=== PATIENT | female | born 1965 | race Caucasian/White ===

== ENCOUNTER → 2016-07-03 | Outpatient (CLI) | payer BC ==
[2015-04-02 06:30] VITALS: BP 124/83
[~2016-07-03] MED LIST: ASPI81TA2 PO; BIOT300T PO; BUPR150T11 PO; CALC-98 PO; CALC667C6 PO; MULT-496 PO; NITR0.4T SL; OMEP20TA PO; PROAIR HFA8.5 GM IH; SUCR1TAB29 PO
== END | disposition home or self-care (01) ==
LOC: KCIC MAMMO 08:55
PROVIDERS: ATTEND Obstetrics & Gynecology
DX: Z12.31 Encounter for screening mammogram for malignant neoplasm of breast (principal)
CPT/HCPCS: G0202; 77067

== ENCOUNTER → 2016-08-13 | Outpatient (CLI) | payer BC ==
[2015-04-02 06:30] VITALS: BP 124/83
[~2016-08-13] MED LIST changes: +NALT1TAB PO; +REGADENOSON 0.4 MG/5 ML DISP.SYRIN. IV ONE
== END | disposition home or self-care (01) ==
LOC: NM 07:27
PROVIDERS: ATTEND Internal Medicine Cardiovascular Disease
DX: R06.02 Shortness of breath (principal); I10 Essential (primary) hypertension; R07.9 Chest pain, unspecified
CPT/HCPCS: 96374

== ENCOUNTER → 2016-09-09 | Outpatient (CLI) | payer BC ==
[2015-04-02 06:30] VITALS: BP 124/83
[~2016-09-09] MED LIST changes: -REGADENOSON 0.4 MG/5 ML DISP.SYRIN. IV ONE
--- NOTE | 2016-09-09 14:42 | RAD ---
Indication shortness of air for the last year. Coughing. Weakness. PA and lateral views of the chest were obtained. Comparison is made to an examination 03/26/2015. The heart and pulmonary vessels are unremarkable. There is no acute parenchymal infiltrate. Significant pleural fluid is not seen. There is no pneumothorax. There is mild scoliosis. There has not been a significant change when compared to the previous exam. IMPRESSION: No acute finding. No significant change
== END | disposition home or self-care (01) ==
LOC: RAD 13:59
PROVIDERS: ATTEND Internal Medicine Pulmonary Disease
DX: M41.9 Scoliosis, unspecified (principal)
CPT/HCPCS: 71020

== ENCOUNTER → 2016-09-22 | Outpatient (CLI) | payer BC ==
[2015-04-02 06:30] VITALS: BP 124/83
[~2016-09-22] MED LIST changes: +ASPI-630 PO; -ASPI81TA2 PO; -OMEP20TA PO; +OMEP20TA8 PO; -SUCR1TAB29 PO; +SUCR1TAB35 PO
--- NOTE | 2016-09-28 22:00 | RESP ---
DATE OF SERVICE: The patient underwent full pulmonary function testing dated 09/22/2016. The FEV1 to FVC ratio was 77%, FEV1 was 2.48 liters, 99% of predicted, FVC was 3.22 liters or 102% of predicted. Total lung capacity was elevated. Residual volume was elevated. Diffusion capacity was preserved. IMPRESSION: No significant evidence of restrictive or obstructive lung disorder. EMMA GONZALES MD DR: SHANNON/rick JOB#: [id number] / [id number] ecc Dr.
== END | disposition home or self-care (01) ==
LOC: PF 07:40
PROVIDERS: ATTEND Internal Medicine Pulmonary Disease
DX: R06.02 Shortness of breath (principal)
CPT/HCPCS: 94010; 94729

== ENCOUNTER 2016-12-19 10:06 | Inpatient (IN) | payer BC ==
[~2016-12-19] VITALS: Ht 154.9 cm; Wt 96.6 kg
[2016-12-19] MEDS ORDERED: fentaNYL PF VIAL 100 MCG/2 ML VIAL IV ONE (10:15)
[2016-12-19] MEDS ORDERED: ONDANSETRON PF 4 MG/2 ML VIAL. IV ONE (10:15)
--- NOTE | 2016-12-19 10:23 | PHYS DOC ---
Past Medical History Past Medical History: Depression, Other Additional Past Medical Histor: REOCCURRING RIGHT BREAST INFECTION, PLANTAR FASCHITIS Past Surgical History: Cholecystectomy, Tonsillectomy, Other Additional Past Surgical Histo: RT BREAST BX Alcohol Use: Occasionally Drug Use: None Adult General Chief Complaint Chief Complaint: TRAUMA ACTIVATION HPI HPI Patient is a 51 year old female who presents by private vehicle with head injury, loss of consciousness, back pain and chest pain after fall from a horse. Injury occurred just prior to ED arrival. Trauma team activated at triage. Patient does not recall episode. Reports diffuse posterior neck pain, sharp back pain, right anterior chest wall pain. No shortness of breath, chest wall crepitus or abdominal pain or tenderness. No extremity weakness or loss of sensation. GCS 14. Patient is not on anticoagulation therapy. Additional history of COPD. Patient is a former smoker. Review of Systems Review of Systems Review of symptoms as per history of present illness. All other review symptoms are negative. Current Medications Current Medications Current Medications Medications (Trade) Dose Ordered Sig/Mayra Start Time Stop Time Status Last Admin Dose Admin Fentanyl Citrate (Fentanyl 2ml Vial) 75 mcg 1X ONCE 12/19/16 10:15 12/19/16 10:29 DC Iohexol (Omnipaque 300 Mg/ml) 75 ml STK-MED ONCE 12/19/16 10:46 12/19/16 10:47 DC Morphine Sulfate 4 mg Q2HR PRN 12/19/16 11:30 12/19/16 11:41 4 MG Ondansetron HCl (Zofran) 4 mg 1X ONCE 12/19/16 10:15 12/19/16 10:29 DC Allergies Allergies Allergies Coded Allergies Type Severity Reaction Last Updated Verified vancomycin Adverse Reaction Intermediate CAUSES CONFUSION PER PATIENT Yes Physical Exam Physical Exam Constitutional: Well developed, well nourished, large distress secondary pain. [ ] HENT: Normocephalic, atraumatic, bilateral external ears normal, oropharynx moist,nose normal. [] Eyes: PERRLA, EOMI. [] Neck: Normal range of motion, cervical collar in place. [] Cardiovascular:Heart rate regular rhythm, no murmur [] Lungs & Thorax: Bilateral breath sounds clear to auscultation 1 no flail chest , chest wall crepitus, palpable emphysema, right lower mid axillary chest wall tenderness. [] Abdomen: Bowel sounds normal, soft, no pelvic pain or bony tenderness. [] Skin: Warm, dry. [] Back: Lower thoracic pain/tenderness to palpation. No midline step-off bruising or swelling.. [] Extremities: No forearm disease or swelling. [] Neurologic: ACS 14 Alert and oriented X 2, cranial nerves II through XII grossly intact normal motor function, normal sensory function, no focal deficits noted. []] Current Patient Data Vital Signs Vital Signs Date Time Temp Pulse Resp B/P (MAP) Pulse Ox O2 Delivery O2 Flow Rate FiO2 12/19/16 11:41 19 98 Room Air Lab Values Laboratory Tests Test 12/19/16 10:15 12/19/16 12:16 White Blood Count 8.9 x10^3/uL (4.0-11.0) Red Blood Count 4.89 x10^6/uL (3.50-5.40) Hemoglobin 14.3 g/dL (12.0-15.5) Hematocrit 42.2 % (36.0-47.0) Mean Corpuscular Volume 86 fL (79-100) Mean Corpuscular Hemoglobin 29 pg (25-35) Mean Corpuscular Hemoglobin Concent 34 g/dL (31-37) Red Cell Distribution Width 14.7 % (11.5-14.5) H Platelet Count 279 x10^3/uL (140-400) Neutrophils (%) (Auto) 73 % (31-73) Lymphocytes (%) (Auto) 21 % (24-48) L Monocytes (%) (Auto) 4 % (0-9) Eosinophils (%) (Auto) 2 % (0-3) Basophils (%) (Auto) 0 % (0-3) Neutrophils # (Auto) 6.5 x10^3uL (1.8-7.7) Lymphocytes # (Auto) 1.8 x10^3/uL (1.0-4.8) Monocytes # (Auto) 0.4 x10^3/uL (0.0-1.1) Eosinophils # (Auto) 0.1 x10^3/uL (0.0-0.7) Basophils # (Auto) 0.0 x10^3/uL (0.0-0.2) Sodium Level 137 mmol/L (136-145) Potassium Level 4.0 mmol/L (3.5-5.1) Chloride Level 103 mmol/L (98-107) Carbon Dioxide Level 24 mmol/L (21-32) Anion Gap 10 (6-14) Blood Urea Nitrogen 14 mg/dL (7-20) Creatinine 1.2 mg/dL (0.6-1.0) H Estimated GFR (Cockcroft-Gault) 47.4 Glucose Level 201 mg/dL (70-99) H Calcium Level 9.5 mg/dL (8.5-10.1) Urine Collection Type Unknown Urine Color Yellow Urine Clarity Clear Urine pH 6.5 Urine Specific [place] >=1.030 Urine Protein 30 mg/dL (NEG-TRACE) Urine Glucose (UA) Negative mg/dL (NEG) Urine Ketones (Stick) Negative mg/dL (NEG) Urine Blood Negative (NEG) Urine Nitrite Negative (NEG) Urine Bilirubin Negative (NEG) Urine Urobilinogen Dipstick 0.2 mg/dL (0.2 mg/dL) Urine Leukocyte Esterase Negative (NEG) Urine RBC 0 /HPF (0-2) Urine WBC Occ /HPF (0-4) Urine Squamous Epithelial Cells Mod /LPF Urine Bacteria 0 /HPF (0-FEW) Urine Hyaline Casts Occasional /HPF Laboratory Tests 12/19/16 10:15 Laboratory Tests 12/19/16 10:15 EKG EKG [] Radiology/Procedures Radiology/Procedures [CT head/cervical spine/thoracic spine/chest/abdomen/pelvis: Mildly displaced right lateral seventh rib fracture, mildly displaced spinous process fractures of T7. 8. Mild endplate sclerosis asymmetry to the right T8-T9 and T9-T10 may be reactive to trauma. No definite thoracic vertebral body fractures. No intracranial, cervical spine, intrathoracic or intra-abdominal/pelvic injury per radiology report Chest XR: No acute cardiopulmonary disease.] Course & Med Decision Making Course & Med Decision Making Pertinent Labs and Imaging studies reviewed. (See chart for details) [Trauma team activated. Dr. Gates in the emergency department on patient arrival. Patient with trauma being bucked from a horse with closed head injury and back pain with evidence of musculoskeletal injury. Patient with concussion with prolonged anterograde amnesia, otherwise neurologically intact. Spinous process and rib fracture require repeat doses of narcotic pain medications in the emergency department. Will admit to the hospitalist for further pain control and observation of head injury.] Dragon Disclaimer Dragon Disclaimer This electronic medical record was generated, in whole or in part, using a voice recognition dictation system. Departure Departure Disposition: 09 ADMITTED INPATIENT Admitting Physician: Negin Trevino Referrals: SHEILA SU MD (PCP) RAZ PICKENS DO Dec 19, 2016 10:23
[2016-12-19 10:26] LABS: BASO % 0 % (0-3); EOS % 2 % (0-3); HEMATOCRIT 42.2 % (36.0-47.0); HEMOGLOBIN 14.3 g/dL (12.0-15.5); LYMPH # 1.8 x10^3/uL (1.0-4.8); LYMPH % 21 % (24-48); MEAN CORPUSCULAR HEMOGLOBIN 29 pg (25-35); MEAN CORPUSCULAR HGB CONC 34 g/dL (31-37); MEAN CORPUSCULAR VOLUME 86 fL (79-100); MONO % 4 % (0-9); NEUT % 73 % (31-73); PLATELET COUNT 279 x10^3/uL (140-400); RED BLOOD COUNT 4.89 x10^6/uL (3.50-5.40); RED CELL DISTRIBUTION WIDTH 14.7 % (11.5-14.5); WHITE BLOOD COUNT 8.9 x10^3/uL (4.0-11.0)
[2016-12-19] MEDS ORDERED: IOHEXOL 300 MG/ML 75 ML VIAL IV ONE (10:30)
[2016-12-19 10:40] LABS: CALCIUM 9.5 mg/dL (8.5-10.1); CREATININE 1.2 mg/dL (0.6-1.0); GFR 47.4
[2016-12-19] MEDS ORDERED: MORPHINE SULFATE 4 MG/ML DISP.SYRIN. IV ONE (10:45)
[2016-12-19] MEDS ORDERED: IOHEXOL 300 MG/ML 75 ML VIAL ONE (10:46)
--- NOTE | 2016-12-19 10:51 | RAD ---
Chest radiograph 12/19/2016 12:13 PM Indication: Fall, chest pain Comparison: Chest radiograph 09/09/2016 Technique: Single portable upright frontal view of the chest is provided. Findings: Cardiomediastinal silhouette is within normal limits. No pleural effusions, pulmonary vascular congestion or pneumothorax. The lungs are clear. Osseous structures are normal. Impression: No acute cardiopulmonary process.
--- NOTE | 2016-12-19 11:26 | RAD ---
CT head without contrast 12/19/2016 at 1056 hours Indication: Trauma, lower back pain Comparison: None available Technique: Multiple axial noncontrast CT images of the head were obtained from the skull base through the vertex. Multiple axial CT images of the cervical spine were obtained without intravenous contrast. Coronal and sagittal reformats are provided. Findings: Head: The ventricles, sulci and basal cisterns are within normal limits. Segura-white matter differentiation is normal. There is no acute intracranial hemorrhage. There is no mass, mass effect or midline shift. Posterior fossa is within normal limits. Sellar and suprasellar cistern appear normal. Orbits are normal in appearance. Paranasal sinuses are well aerated. Mastoid air cells are well aerated. Scalp and calvaria are normal. Cervical spine: Alignment of the cervical spine is normal. Craniocervical junction is normal. Atlantoaxial articulation is normal. There is no acute fracture. Mild anterior marginal osteophytosis noted at C4-C5 and C5-C6. There is no significant osseous spinal canal stenosis or neuroforaminal stenosis. Mild multilevel facet arthropathy and uncovertebral joint arthropathy. There is a 5 mm cyst in the right thyroid lobe. Which is portions of the upper lungs are normal. Impression: There is no acute intracranial hemorrhage. There is no acute fracture or malalignment of the cervical spine. PQRS Compliance Statement: One or more of the following individualized dose reduction techniques were utilized for this examination: 1. Automated exposure control 2. Adjustment of the mA and/or kV according to patient size 3. Use of iterative reconstruction technique
[2016-12-19] MEDS: MORPHINE SULFATE 4 MG/ML DISP.SYRIN. IV PRN ×4 (11:41→20:19)
--- NOTE | 2016-12-19 11:43 | RAD ---
CT chest, abdomen and pelvis with contrast 12/19/[address] thoracic spine reconstructions Indication: Trauma, lower back pain Comparison: None available Technique: Multiple axial CT images of the chest, abdomen and pelvis were obtained after the administration of 60 mL Omnipaque 300 intravenously. Coronal and sagittal reformats are provided. Thoracic spine reconstructions are provided for detailed evaluation of the thoracic spine. Findings: Chest: A 5 mm cyst is identified in the right thyroid lobe. There are no pathologically enlarged lymph nodes in the axilla, mediastinum or hilar regions. Heart size is within normal limits. Thoracic aorta is normal in course and caliber. There is no pericardial effusion. There is a 5 mm calcified granuloma in the right middle lobe. No suspicious pulmonary nodules are identified. There is bibasilar subsegmental atelectasis. No suspicious pulmonary infiltrates present. No pulmonary vascular congestion or pneumothorax. There are no pleural effusions. Abdomen/pelvis: Hypoattenuation of the hepatic parenchyma suggestive of diffuse hepatic steatosis. A small hiatal hernia is present. Spleen, lateral adrenal glands, and pancreas are within normal limits. Gallbladder surgically absent. There is no intrahepatic or extrahepatic biliary ductal dilatation. The abdominal aorta is normal in course and caliber with scattered atherosclerotic calcification. There are no pathologically enlarged lymph nodes in the abdomen or pelvis. There is no free fluid in the abdomen or pelvis. There is no free intraperitoneal air. The kidneys enhance symmetrically. No suspicious renal masses are identified. No hydronephrosis. No calculi are identified in the kidneys, ureters or urinary bladder. Urinary bladder is within normal limits given degree of distention. No significant adnexal masses are identified. There are scattered diverticula are identified in the sigmoid colon. No adjacent inflammatory changes to suggest diverticulitis. Small and large bowel loops are normal in caliber. There are no pericolonic inflammatory changes identified. There is a minimally displaced right-sided lateral seventh rib fracture. Thoracic spine: Vertebral bodies are normal in height and alignment. Disc spaces are maintained. Facet joints are normal in appearance. Mildly displaced fractures of the spinous processes at T7 and T8 are noted. No spinal canal or neural foraminal compromise. There is minimal endplate sclerosis asymmetric to the right at T8-T9 and T9-T10. Impression: 1. Mildly displaced right lateral seventh rib fracture. 2. Mildly displaced spinous processes fractures at T7 and T8. 3. Mild endplate sclerosis asymmetric to the right at T8-T9 and T9-T10 may be secondary to posttraumatic reactive changes. No definite thoracic vertebral body fracture is identified. 4. There is no pneumothorax. Bibasilar subsegmental atelectasis without evidence for infiltrate. 5. No evidence for solid organ injury involving the abdomen or pelvis. 6. Diffuse hepatic steatosis. 7. Colonic diverticulosis without adjacent inflammatory changes to suggest a radiculitis. PQRS Compliance Statement: One or more of the following individualized dose reduction techniques were utilized for this examination: 1. Automated exposure control 2. Adjustment of the mA and/or kV according to patient size 3. Use of iterative reconstruction technique
[2016-12-19 12:23] LABS: BILIRUBIN,URINE NEGATIVE (NEG); GLUCOSE,URINE NEGATIVE (NEG); NITRITE,URINE NEGATIVE (NEG); PH,URINE 6.5; PROTEIN,URINE 30 mg/dL (NEG-TRACE); UROBILINOGEN,URINE 0.2 mg/dL (0.2 mg/dL)
[2016-12-19 12:32] LABS: BACTERIA,URINE 0 /HPF (0-FEW); RBC,URINE 0 /HPF (0-2); SQUAMOUS EPITHELIAL CELL,UR MOD /LPF; WBC,URINE OCC /HPF (0-4)
[2016-12-19] MEDS ORDERED: MORPHINE SULFATE 2 MG/ML DISP.SYRIN. IV PRN (12:45)
[2016-12-19 14:45] VITALS: BP 119/72
[2016-12-19] MEDS ORDERED: PANT40TA3 PO (15:22)
[2016-12-19] MEDS ORDERED: FLUT1AER2 INH (15:23)
[2016-12-19] MEDS ORDERED: NON FORMULARY ITEM (Albuterol Sulfate (Proair Hfa Inhaler) 2 PUFF) IH SCH (17:15)
[2016-12-19] MEDS ORDERED: ALBUTEROL SULFATE 2.5 MG/3 ML NEBU. NEB PRN (17:30)
[2016-12-19] MEDS: CALCIUM ACETATE 667 MG CAPSULE PO SCH (17:36)
[2016-12-19] MEDS: CYCLOBENZAPRINE 10 MG TABLET. PO PRN (17:36)
--- NOTE | 2016-12-19 18:50 | PDOC2 ---
CONSULT Date of Consult Date of Consult DATE: 12/19/16 TIME: 18:43 Reason for Consult Reason for Consult: Trauma activation Referring Physician Referring Physician: Yunior Identification/Chief Complaint Chief Complaint back pain, chest pain Problems: Source Source: Patient History of Present Illness Reason for Visit: 51 yo F was bucked off horse this morning. Reports significant pain in lower back and right chest. No recall of event. Pleasant and oriented otherwise. Denies N/V/F/C Past Medical History Pulmonary: No pertinent hx, COPD GI: GERD, Other (obesity, scheduled for gastric sleeve) Heme/Onc: No pertinent hx Psych: No pertinent hx Infectious disease: No pertinent hx Past Surgical History Past Surgical History: Cholecystectomy, Tonsillectomy, Other (breast biopsy) Family History Family History: No Significant Social History Quit ALCOHOL: occassional Lives: with Family Current Problem List Problem List Problems Medical Problems: (1) Concussion Status: Acute (2) Right rib fracture Status: Acute (3) Spinous process fracture Status: Acute Current Medications Current Medications Current Medications Fentanyl Citrate (Fentanyl 2ml Vial) 75 mcg 1X ONCE IV Last administered on 10:20; Start 12/19/16 at 10:15; Stop 12/19/16 at 10:29; Status DC Ondansetron HCl (Zofran) 4 mg 1X ONCE IV Last administered on 12/19/16 10:19 ; Start 12/19/16 at 10:15; Stop 12/19/16 at 10:29; Status DC Iohexol (Omnipaque 300 Mg/ml) 75 ml 1X ONCE IV Last administered on 12/19/16 10:52; Start 12/19/16 at 10:30; Stop 12/19/16 at 10:31; Status DC Morphine Sulfate 4 mg 1X ONCE IV Last administered on 12/19/16 10:45; Start 12/19/16 at 10:45; Stop 12/19/16 at 10:46; Status DC Iohexol (Omnipaque 300 Mg/ml) 75 ml STK-MED ONCE .ROUTE ; Start 12/19/16 at 10: 46; Stop 12/19/16 at 10:47; Status DC Morphine Sulfate 4 mg Q2HR PRN IV pain Last administered on 12/19/16 17:36; Start 12/19/16 at 11:30 Morphine Sulfate 2 mg PRN Q2HR PRN IV PAIN; Start 12/19/16 at 12:45; Stop 12/20 at 12:44 Calcium Acetate (Phoslo) 667 mg TIDWMEALS PO Last administered on 12/19/16t 17: 36; Start 12/19/16 at 17:30 Pantoprazole Sodium (Protonix) 40 mg DAILYAC PO ; Start 12/20/16 at 07:30 Non-Formulary Medication 2 puff PRN Q4-6HRS IH ; Start 12/19/16 at 17:15; Status UNV Non-Formulary Medication 1 each DAILY INH ; Start 12/20/16 at 09:00; Status UNV Multivitamins (Thera M Plus) 1 tab DAILY PO ; Start 12/20/16 at 09:00 Cyclobenzaprine HCl (Flexeril) 10 mg PRN Q8HRS PRN PO MUSCLE SPASMS Last administered on 12/19/16t 17:36; Start 12/19/16 at 17:15 Albuterol Sulfate (Ventolin Neb Soln) 2.5 mg RTQID NEB ; Start 12/19/16 at 20:00 Albuterol Sulfate (Ventolin Neb Soln) 2.5 mg PRN Q6HRS PRN NEB SHORTNESS OF BREATH; Start 12/19/16 at 17:30 Budesonide (Pulmicort) 0.5 mg RTBID NEB ; Start 12/19/16 at 20:00 Active Scripts Active Reported Breo Ellipta 100-25 Mcg INH (Fluticasone/Vilanterol) 1 Each Blst.w.dev 1 Each INH DAILY Protonix (Pantoprazole Sodium) 40 Mg Tablet.dr 1 Tab PO DAILY Proair Hfa Inhaler (Albuterol Sulfate) 8.5 Gm Hfa.aer.ad 2 Puff IH PRN Q4-6HRS Phoslo (Calcium Acetate) 667 Mg Capsule 667 Mg PO TIDWMEALS Daily Value (Multivitamin) 1 Each Tablet 1 Each PO DAILY Bupropion Hcl Sr (Bupropion Hcl) 150 Mg Tablet.er 40 Tab PO BID Allergies Allergies: Coded Allergies: vancomycin (Verified Adverse Reaction, Intermediate, CAUSES CONFUSION PER PATIENT, 04/01/15) Physical Exam General: Alert, Cooperative, moderate distress HEENT: Atraumatic, EOMI Lungs: Normal air movement Abdomen: Soft, No tenderness Extremities: Other (good sensation and movement throughout) Skin: No rashes, No breakdown Neuro: Normal speech, Sensation intact Psych/Mental Status: Mood NL, Other (no recall of event) MUSCULOSKELETAL: Other (pain in right chest and back) Vitals VITALS Vital Signs Date Time Temp Pulse Resp B/P (MAP) Pulse Ox O2 Delivery O2 Flow Rate FiO2 12/19/16 18:06 20 Room Air 12/19/16 14:45 98.1 90 119/72 (88) 98 98.1 Labs Labs Laboratory Tests Test 12/19/16 10:15 12/19/16 12:16 White Blood Count 8.9 x10^3/uL (4.0-11.0) Red Blood Count 4.89 x10^6/uL (3.50-5.40) Hemoglobin 14.3 g/dL (12.0-15.5) Hematocrit 42.2 % (36.0-47.0) Mean Corpuscular Volume 86 fL (79-100) Mean Corpuscular Hemoglobin 29 pg (25-35) Mean Corpuscular Hemoglobin Concent 34 g/dL (31-37) Red Cell Distribution Width 14.7 % (11.5-14.5) Platelet Count 279 x10^3/uL (140-400) Neutrophils (%) (Auto) 73 % (31-73) Lymphocytes (%) (Auto) 21 % (24-48) Monocytes (%) (Auto) 4 % (0-9) Eosinophils (%) (Auto) 2 % (0-3) Basophils (%) (Auto) 0 % (0-3) Neutrophils # (Auto) 6.5 x10^3uL (1.8-7.7) Lymphocytes # (Auto) 1.8 x10^3/uL (1.0-4.8) Monocytes # (Auto) 0.4 x10^3/uL (0.0-1.1) Eosinophils # (Auto) 0.1 x10^3/uL (0.0-0.7) Basophils # (Auto) 0.0 x10^3/uL (0.0-0.2) Sodium Level 137 mmol/L (136-145) Potassium Level 4.0 mmol/L (3.5-5.1) Chloride Level 103 mmol/L (98-107) Carbon Dioxide Level 24 mmol/L (21-32) Anion Gap 10 (6-14) Blood Urea Nitrogen 14 mg/dL (7-20) Creatinine 1.2 mg/dL (0.6-1.0) Estimated GFR (Cockcroft-Gault) 47.4 Glucose Level 201 mg/dL (70-99) Calcium Level 9.5 mg/dL (8.5-10.1) Urine Collection Type Unknown Urine Color Yellow Urine Clarity Clear Urine pH 6.5 Urine Specific [place] >=1.030 Urine Protein 30 mg/dL (NEG-TRACE) Urine Glucose (UA) Negative mg/dL (NEG) Urine Ketones (Stick) Negative mg/dL (NEG) Urine Blood Negative (NEG) Urine Nitrite Negative (NEG) Urine Bilirubin Negative (NEG) Urine Urobilinogen Dipstick 0.2 mg/dL (0.2 mg/dL) Urine Leukocyte Esterase Negative (NEG) Urine RBC 0 /HPF (0-2) Urine WBC Occ /HPF (0-4) Urine Squamous Epithelial Cells Mod /LPF Urine Bacteria 0 /HPF (0-FEW) Urine Hyaline Casts Occasional /HPF Laboratory Tests Test 12/19/16 10:15 12/19/16 12:16 White Blood Count 8.9 x10^3/uL (4.0-11.0) Red Blood Count 4.89 x10^6/uL (3.50-5.40) Hemoglobin 14.3 g/dL (12.0-15.5) Hematocrit 42.2 % (36.0-47.0) Mean Corpuscular Volume 86 fL (79-100) Mean Corpuscular Hemoglobin 29 pg (25-35) Mean Corpuscular Hemoglobin Concent 34 g/dL (31-37) Red Cell Distribution Width 14.7 % (11.5-14.5) Platelet Count 279 x10^3/uL (140-400) Neutrophils (%) (Auto) 73 % (31-73) Lymphocytes (%) (Auto) 21 % (24-48) Monocytes (%) (Auto) 4 % (0-9) Eosinophils (%) (Auto) 2 % (0-3) Basophils (%) (Auto) 0 % (0-3) Neutrophils # (Auto) 6.5 x10^3uL (1.8-7.7) Lymphocytes # (Auto) 1.8 x10^3/uL (1.0-4.8) Monocytes # (Auto) 0.4 x10^3/uL (0.0-1.1) Eosinophils # (Auto) 0.1 x10^3/uL (0.0-0.7) Basophils # (Auto) 0.0 x10^3/uL (0.0-0.2) Sodium Level 137 mmol/L (136-145) Potassium Level 4.0 mmol/L (3.5-5.1) Chloride Level 103 mmol/L (98-107) Carbon Dioxide Level 24 mmol/L (21-32) Anion Gap 10 (6-14) Blood Urea Nitrogen 14 mg/dL (7-20) Creatinine 1.2 mg/dL (0.6-1.0) Estimated GFR (Cockcroft-Gault) 47.4 Glucose Level 201 mg/dL (70-99) Calcium Level 9.5 mg/dL (8.5-10.1) Urine Collection Type Unknown Urine Color Yellow Urine Clarity Clear Urine pH 6.5 Urine Specific [place] >=1.030 Urine Protein 30 mg/dL (NEG-TRACE) Urine Glucose (UA) Negative mg/dL (NEG) Urine Ketones (Stick) Negative mg/dL (NEG) Urine Blood Negative (NEG) Urine Nitrite Negative (NEG) Urine Bilirubin Negative (NEG) Urine Urobilinogen Dipstick 0.2 mg/dL (0.2 mg/dL) Urine Leukocyte Esterase Negative (NEG) Urine RBC 0 /HPF (0-2) Urine WBC Occ /HPF (0-4) Urine Squamous Epithelial Cells Mod /LPF Urine Bacteria 0 /HPF (0-FEW) Urine Hyaline Casts Occasional /HPF Images Images CT head and neck wnl, Chest chest with rib fracture, multiple back fractures Assessment/Plan Assessment/Plan concussion, rib fractures, back fractures d/w Dr. Mojica at time of activation agree with admission, observation, pain control, pulm toilet will ask Neurosurg to eval back fractures, but low suspicion will require intervention Thanks for consult! LUIS ENRIQUE MESSINA MD Dec 19, 2016 18:49
[2016-12-19 19:00] VITALS: BP 117/73
[2016-12-19] MEDS: ALBUTEROL SULFATE 2.5 MG/3 ML NEBU. NEB SCH (20:45)
[2016-12-19] MEDS: BUDESONIDE 0.5 MG/2 ML NEBU. NEB SCH (20:45)
[2016-12-19 23:11] VITALS: BP 114/65
--- NOTE | 2016-12-19 23:44 | HP ---
ADMIT DATE: 12/19/2016 DATE OF ADMISSION: 12/19/2016. CHIEF COMPLAINT: Fell off a horse. HISTORY OF PRESENT ILLNESS: The patient is a pleasant 51-year-old female who actually was bucked off a mule, it then trampled her. She presented to the ER by ambulance. She has multiple fractures. The patient has been admitted for pain management and consultation with Neurosurgery. PAST MEDICAL HISTORY: Depression, probable alcohol abuse, plantar fasciitis, right breast infection, cholecystectomy, tonsillectomy. ALLERGIES: VANCOMYCIN. FAMILY HISTORY: Hypertension. SOCIAL HISTORY: She apparently does drink heavily. No smoking or drugs. She is . MEDICATIONS: Reviewed. REVIEW OF SYSTEMS: GENERAL: No history of weight change, weakness or fevers. SKIN: No bruising, hair changes or rashes. EYES: No blurred, double or loss of vision. NOSE AND THROAT: No history of nosebleeds, hoarseness or sore throat. HEART: No history of palpitations, chest pain or shortness of breath on exertion. LUNGS: Denies cough, hemoptysis, wheezing or shortness of breath. GASTROINTESTINAL: Denies changes in appetite, nausea, vomiting, diarrhea or constipation. GENITOURINARY: No history of frequency, urgency, hesitancy or nocturia. NEUROLOGIC: Denies history of numbness, tingling, tremor or weakness. PSYCHIATRIC: No history of panic, anxiety or depression. ENDOCRINE: No history of heat or cold intolerance, polyuria or polydipsia. EXTREMITIES: Denies muscle weakness, joint pain, pain on walking or stiffness. MUSCULOSKELETAL: She complains of diffuse pain. PHYSICAL EXAMINATION: VITAL SIGNS: Temperature afebrile, pulse 78, respirations 18, blood pressure 117/73, O2 sat 93%. GENERAL: She is awake, complaining of pain. Her family is present. HEART: Normal S1, S2. LUNGS: Clear. ABDOMEN: Soft, positive bowel sounds. EXTREMITIES: Trace edema. SKIN: No rashes. PSYCHIATRIC: She is anxious. VASCULAR: Good capillary refill. ENDOCRINE: No thyromegaly. LYMPHATICS: No cervical nodes. HEMATOPOIETIC: No bruising. MUSCULOSKELETAL: She has diffuse pain. LABORATORY DATA: Hematology is normal. Electrolytes normal. Urinalysis does show UTI. IMAGING STUDIES: She had multiple CAT scans and x-rays, I reviewed them with her . Basically, she has a right 7th rib fracture. She has a spinal process fracture at T7 and T8. She has some old sclerotic fractures at T8, T9 and T10. She has a L2 endplate fracture and an L3 endplate fracture with incidental findings of a fatty liver and diverticulosis. ASSESSMENT AND PLAN: Fall with multiple fractures with an incidental finding of urinary tract infection. The patient has been admitted. We will give her p.r.n. narcotics, p.r.n. muscle spasm relievers with Flexeril 10 q.8. Consult Neurosurgery. IV Rocephin. PT, OT. IV fluids. NIAL Elias MAS DO DR: LIONEL/rick JOB#: [id number] / [id number]
[2016-12-20] MEDS: CYCLOBENZAPRINE 10 MG TABLET. PO PRN ×4 (01:33→17:21)
[2016-12-20] MEDS: MORPHINE SULFATE 4 MG/ML DISP.SYRIN. IV PRN ×6 (01:34→15:19)
[2016-12-20 03:03] VITALS: BP 119/71
[2016-12-20] MEDS: PANTOPRAZOLE 40 MG TABLET.DR. PO SCH (06:27)
[2016-12-20 07:00] VITALS: BP 118/74
[2016-12-20] MEDS: CALCIUM ACETATE 667 MG CAPSULE PO SCH ×3 (08:17→17:21)
[2016-12-20] MEDS: BUDESONIDE 0.5 MG/2 ML NEBU. NEB SCH ×2 (08:26→19:46)
[2016-12-20] MEDS: ALBUTEROL SULFATE 2.5 MG/3 ML NEBU. NEB SCH ×4 (08:27→19:46)
[2016-12-20] MEDS ORDERED: FLUTICASONE INH SCH (09:00)
[2016-12-20] MEDS ORDERED: MULTIVITAMIN with MINERAL TABLET. PO SCH (09:00)
[2016-12-20] MEDS ORDERED: VILANTEROL INH SCH (09:00)
[2016-12-20] MEDS: MULTIVITAMIN with MINERAL TABLET. PO SCH (09:26)
--- NOTE | 2016-12-20 10:14 | PDOC ---
SURGICAL PROGRESS NOTE Subjective Pt with c/o low back pain and right chest pain, more clear today, no N/V Vital Signs Vital Signs Date Time Temp Pulse Resp B/P (MAP) Pulse Ox O2 Delivery O2 Flow Rate FiO2 12/20/16 08:27 Room Air 12/20/16 08:19 22 12/20/16 07:00 99.3 82 118/74 (89) 92 99.3 General: Alert, Oriented X3, Cooperative, mild distress Abdomen: Soft, No tenderness Neuro: Normal speech, Sensation intact Labs Laboratory Tests Test 12/19/16 10:15 12/19/16 12:16 White Blood Count 8.9 x10^3/uL (4.0-11.0) Red Blood Count 4.89 x10^6/uL (3.50-5.40) Hemoglobin 14.3 g/dL (12.0-15.5) Hematocrit 42.2 % (36.0-47.0) Mean Corpuscular Volume 86 fL (79-100) Mean Corpuscular Hemoglobin 29 pg (25-35) Mean Corpuscular Hemoglobin Concent 34 g/dL (31-37) Red Cell Distribution Width 14.7 % (11.5-14.5) Platelet Count 279 x10^3/uL (140-400) Neutrophils (%) (Auto) 73 % (31-73) Lymphocytes (%) (Auto) 21 % (24-48) Monocytes (%) (Auto) 4 % (0-9) Eosinophils (%) (Auto) 2 % (0-3) Basophils (%) (Auto) 0 % (0-3) Neutrophils # (Auto) 6.5 x10^3uL (1.8-7.7) Lymphocytes # (Auto) 1.8 x10^3/uL (1.0-4.8) Monocytes # (Auto) 0.4 x10^3/uL (0.0-1.1) Eosinophils # (Auto) 0.1 x10^3/uL (0.0-0.7) Basophils # (Auto) 0.0 x10^3/uL (0.0-0.2) Sodium Level 137 mmol/L (136-145) Potassium Level 4.0 mmol/L (3.5-5.1) Chloride Level 103 mmol/L (98-107) Carbon Dioxide Level 24 mmol/L (21-32) Anion Gap 10 (6-14) Blood Urea Nitrogen 14 mg/dL (7-20) Creatinine 1.2 mg/dL (0.6-1.0) Estimated GFR (Cockcroft-Gault) 47.4 Glucose Level 201 mg/dL (70-99) Calcium Level 9.5 mg/dL (8.5-10.1) Urine Collection Type Unknown Urine Color Yellow Urine Clarity Clear Urine pH 6.5 Urine Specific [place] >=1.030 Urine Protein 30 mg/dL (NEG-TRACE) Urine Glucose (UA) Negative mg/dL (NEG) Urine Ketones (Stick) Negative mg/dL (NEG) Urine Blood Negative (NEG) Urine Nitrite Negative (NEG) Urine Bilirubin Negative (NEG) Urine Urobilinogen Dipstick 0.2 mg/dL (0.2 mg/dL) Urine Leukocyte Esterase Negative (NEG) Urine RBC 0 /HPF (0-2) Urine WBC Occ /HPF (0-4) Urine Squamous Epithelial Cells Mod /LPF Urine Bacteria 0 /HPF (0-FEW) Urine Hyaline Casts Occasional /HPF Laboratory Tests Test 12/19/16 10:15 12/19/16 12:16 White Blood Count 8.9 x10^3/uL (4.0-11.0) Red Blood Count 4.89 x10^6/uL (3.50-5.40) Hemoglobin 14.3 g/dL (12.0-15.5) Hematocrit 42.2 % (36.0-47.0) Mean Corpuscular Volume 86 fL (79-100) Mean Corpuscular Hemoglobin 29 pg (25-35) Mean Corpuscular Hemoglobin Concent 34 g/dL (31-37) Red Cell Distribution Width 14.7 % (11.5-14.5) Platelet Count 279 x10^3/uL (140-400) Neutrophils (%) (Auto) 73 % (31-73) Lymphocytes (%) (Auto) 21 % (24-48) Monocytes (%) (Auto) 4 % (0-9) Eosinophils (%) (Auto) 2 % (0-3) Basophils (%) (Auto) 0 % (0-3) Neutrophils # (Auto) 6.5 x10^3uL (1.8-7.7) Lymphocytes # (Auto) 1.8 x10^3/uL (1.0-4.8) Monocytes # (Auto) 0.4 x10^3/uL (0.0-1.1) Eosinophils # (Auto) 0.1 x10^3/uL (0.0-0.7) Basophils # (Auto) 0.0 x10^3/uL (0.0-0.2) Sodium Level 137 mmol/L (136-145) Potassium Level 4.0 mmol/L (3.5-5.1) Chloride Level 103 mmol/L (98-107) Carbon Dioxide Level 24 mmol/L (21-32) Anion Gap 10 (6-14) Blood Urea Nitrogen 14 mg/dL (7-20) Creatinine 1.2 mg/dL (0.6-1.0) Estimated GFR (Cockcroft-Gault) 47.4 Glucose Level 201 mg/dL (70-99) Calcium Level 9.5 mg/dL (8.5-10.1) Urine Collection Type Unknown Urine Color Yellow Urine Clarity Clear Urine pH 6.5 Urine Specific [place] >=1.030 Urine Protein 30 mg/dL (NEG-TRACE) Urine Glucose (UA) Negative mg/dL (NEG) Urine Ketones (Stick) Negative mg/dL (NEG) Urine Blood Negative (NEG) Urine Nitrite Negative (NEG) Urine Bilirubin Negative (NEG) Urine Urobilinogen Dipstick 0.2 mg/dL (0.2 mg/dL) Urine Leukocyte Esterase Negative (NEG) Urine RBC 0 /HPF (0-2) Urine WBC Occ /HPF (0-4) Urine Squamous Epithelial Cells Mod /LPF Urine Bacteria 0 /HPF (0-FEW) Urine Hyaline Casts Occasional /HPF Problem List Problems Medical Problems: (1) Concussion Status: Acute (2) Right rib fracture Status: Acute (3) Spinous process fracture Status: Acute Assessment/Plan s/p fall will ask neurosurgery to eval cont pain control no surgical plans Problems: LUIS ENRIQUE MESSINA MD Dec 20, 2016 10:14
[2016-12-20 11:00] VITALS: BP 114/77
--- NOTE | 2016-12-20 11:36 | PDOC2 ---
CONSULT Date of Consult Date of Consult DATE: 12/20/16 TIME: 11:21 Reason for Consult Reason for Consult: thoracic and lumbar fractures Identification/Chief Complaint Chief Complaint back pain Problems: History of Present Illness Reason for Visit: 51F who was thrown from mule yesterday. Had loss of consciousness for approx 45 seconds. Awoke with headache, midscapular pain, and low back pain. Denies radicular type pain or paresthesias, denies focal weakness or bowel/bladder changes. Imaging with lumbar compression fractures and thoracic spinous process fractures. Past Medical History Pulmonary: No pertinent hx, COPD GI: GERD, Other Heme/Onc: No pertinent hx Psych: No pertinent hx Infectious disease: No pertinent hx Past Surgical History Past Surgical History: Cholecystectomy, Tonsillectomy, Other Family History Family History: No Significant Social History Quit ALCOHOL: occassional Lives: with Family Current Problem List Problem List Problems Medical Problems: (1) Concussion Status: Acute (2) Right rib fracture Status: Acute (3) Spinous process fracture Status: Acute Current Medications Current Medications Current Medications Fentanyl Citrate (Fentanyl 2ml Vial) 75 mcg 1X ONCE IV Last administered on 10:20; Start 12/19/16 at 10:15; Stop 12/19/16 at 10:29; Status DC Ondansetron HCl (Zofran) 4 mg 1X ONCE IV Last administered on 12/19/16 10:19 ; Start 12/19/16 at 10:15; Stop 12/19/16 at 10:29; Status DC Iohexol (Omnipaque 300 Mg/ml) 75 ml 1X ONCE IV Last administered on 12/19/16 10:52; Start 12/19/16 at 10:30; Stop 12/19/16 at 10:31; Status DC Morphine Sulfate 4 mg 1X ONCE IV Last administered on 12/19/16 10:45; Start 12/19/16 at 10:45; Stop 12/19/16 at 10:46; Status DC Iohexol (Omnipaque 300 Mg/ml) 75 ml STK-MED ONCE .ROUTE ; Start 12/19/16 at 10: 46; Stop 12/19/16 at 10:47; Status DC Morphine Sulfate 4 mg Q2HR PRN IV pain Last administered on 12/20/16 08:19; Start 12/19/16 at 11:30 Morphine Sulfate 2 mg PRN Q2HR PRN IV PAIN; Start 12/19/16 at 12:45; Stop 12/20 at 12:44 Calcium Acetate (Phoslo) 667 mg TIDWMEALS PO Last administered on 12/20/16 08: 17; Start 12/19/16 at 17:30 Pantoprazole Sodium (Protonix) 40 mg DAILYAC PO Last administered on 12/20/16 06:27; Start 12/20/16 at 07:30 Non-Formulary Medication 2 puff PRN Q4-6HRS IH ; Start 12/19/16 at 17:15; Status UNV Non-Formulary Medication 1 each DAILY INH ; Start 12/20/16 at 09:00; Status UNV Multivitamins (Thera M Plus) 1 tab DAILY PO ; Start 12/20/16 at 09:00; Stop at 09:00; Status DC Cyclobenzaprine HCl (Flexeril) 10 mg PRN Q8HRS PRN PO MUSCLE SPASMS Last administered on 12/20/16 09:26; Start 12/19/16 at 17:15 Albuterol Sulfate (Ventolin Neb Soln) 2.5 mg RTQID NEB Last administered on 08:27; Start 12/19/16 at 20:00 Albuterol Sulfate (Ventolin Neb Soln) 2.5 mg PRN Q6HRS PRN NEB SHORTNESS OF BREATH; Start 12/19/16 at 17:30 Budesonide (Pulmicort) 0.5 mg RTBID NEB Last administered on 12/20/16 08:26; Start 12/19/16 at 20:00 Multivitamins (Thera M Plus) 1 tab DAILY PO Last administered on 12/20/16 09: 26; Start 12/20/16 at 09:00 Active Scripts Active Reported Breo Ellipta 100-25 Mcg INH (Fluticasone/Vilanterol) 1 Each Blst.w.dev 1 Each INH DAILY Protonix (Pantoprazole Sodium) 40 Mg Tablet.dr 1 Tab PO DAILY Proair Hfa Inhaler (Albuterol Sulfate) 8.5 Gm Hfa.aer.ad 2 Puff IH PRN Q4-6HRS Phoslo (Calcium Acetate) 667 Mg Capsule 667 Mg PO TIDWMEALS Daily Value (Multivitamin) 1 Each Tablet 1 Each PO DAILY Bupropion Hcl Sr (Bupropion Hcl) 150 Mg Tablet.er 40 Tab PO BID Allergies Allergies: Coded Allergies: vancomycin (Verified Adverse Reaction, Intermediate, CAUSES CONFUSION PER PATIENT, 04/01/15) ROS General: No: Chills, Night Sweats, Fatigue, Malaise PSYCHOLOGICAL ROS: YES: Decreased libido, No: Anxiety, Depression Eyes: No Blurry vision, No Decreased vision, No Double vision HEENT: YES: Heacaches (improved today) Hematological and Lymphatic: No: Bleeding Problems, Brusing Respiratory: No: Cough, Shortness of breath, Tachypnea Cardiovascular: No Chest Pain, No Palpitations, No Edema Gastrointestinal: Yes Hematochezia, No Nausea, No Vomiting, No Abdominal Pain Genitourinary: YES Hematuria, No Incontinence, No Retention Musculoskeletal: No Gait Disturbance, No Muscular Weakness Neurological: No Bowel/Bladder ControlChng, No Confusion, No Gait Disturbance, No Numbness/Tingling, No Speech Problems, No Weakness Skin: No Dry Skin, No Pruritus, No Rash Physical Exam General: Alert, Oriented X3, Cooperative, No acute distress HEENT: Atraumatic, PERRLA, EOMI Lungs: Other (respirations even and nonlabored) Heart: Regular rate Abdomen: Soft, No tenderness Extremities: No clubbing, No cyanosis, No edema Skin: No rashes, No breakdown Neuro: Normal speech, Strength at 5/5 X4 ext, Normal tone, Sensation intact, Cranial nerves 3-12 NL, Reflexes 2+ Psych/Mental Status: Mental status NL, Mood NL MUSCULOSKELETAL: No deformity, No swelling, Other (lumbar TTP) Vitals VITALS Vital Signs Date Time Temp Pulse Resp B/P (MAP) Pulse Ox O2 Delivery O2 Flow Rate FiO2 12/20/16 08:27 Room Air 12/20/16 08:19 22 12/20/16 07:00 99.3 82 118/74 (89) 92 99.3 Labs Labs Laboratory Tests Test 12/19/16 10:15 12/19/16 12:16 White Blood Count 8.9 x10^3/uL (4.0-11.0) Red Blood Count 4.89 x10^6/uL (3.50-5.40) Hemoglobin 14.3 g/dL (12.0-15.5) Hematocrit 42.2 % (36.0-47.0) Mean Corpuscular Volume 86 fL (79-100) Mean Corpuscular Hemoglobin 29 pg (25-35) Mean Corpuscular Hemoglobin Concent 34 g/dL (31-37) Red Cell Distribution Width 14.7 % (11.5-14.5) Platelet Count 279 x10^3/uL (140-400) Neutrophils (%) (Auto) 73 % (31-73) Lymphocytes (%) (Auto) 21 % (24-48) Monocytes (%) (Auto) 4 % (0-9) Eosinophils (%) (Auto) 2 % (0-3) Basophils (%) (Auto) 0 % (0-3) Neutrophils # (Auto) 6.5 x10^3uL (1.8-7.7) Lymphocytes # (Auto) 1.8 x10^3/uL (1.0-4.8) Monocytes # (Auto) 0.4 x10^3/uL (0.0-1.1) Eosinophils # (Auto) 0.1 x10^3/uL (0.0-0.7) Basophils # (Auto) 0.0 x10^3/uL (0.0-0.2) Sodium Level 137 mmol/L (136-145) Potassium Level 4.0 mmol/L (3.5-5.1) Chloride Level 103 mmol/L (98-107) Carbon Dioxide Level 24 mmol/L (21-32) Anion Gap 10 (6-14) Blood Urea Nitrogen 14 mg/dL (7-20) Creatinine 1.2 mg/dL (0.6-1.0) Estimated GFR (Cockcroft-Gault) 47.4 Glucose Level 201 mg/dL (70-99) Calcium Level 9.5 mg/dL (8.5-10.1) Urine Collection Type Unknown Urine Color Yellow Urine Clarity Clear Urine pH 6.5 Urine Specific [place] >=1.030 Urine Protein 30 mg/dL (NEG-TRACE) Urine Glucose (UA) Negative mg/dL (NEG) Urine Ketones (Stick) Negative mg/dL (NEG) Urine Blood Negative (NEG) Urine Nitrite Negative (NEG) Urine Bilirubin Negative (NEG) Urine Urobilinogen Dipstick 0.2 mg/dL (0.2 mg/dL) Urine Leukocyte Esterase Negative (NEG) Urine RBC 0 /HPF (0-2) Urine WBC Occ /HPF (0-4) Urine Squamous Epithelial Cells Mod /LPF Urine Bacteria 0 /HPF (0-FEW) Urine Hyaline Casts Occasional /HPF Laboratory Tests Test 12/19/16 12:16 Urine Collection Type Unknown Urine Color Yellow Urine Clarity Clear Urine pH 6.5 Urine Specific [place] >=1.030 Urine Protein 30 mg/dL (NEG-TRACE) Urine Glucose (UA) Negative mg/dL (NEG) Urine Ketones (Stick) Negative mg/dL (NEG) Urine Blood Negative (NEG) Urine Nitrite Negative (NEG) Urine Bilirubin Negative (NEG) Urine Urobilinogen Dipstick 0.2 mg/dL (0.2 mg/dL) Urine Leukocyte Esterase Negative (NEG) Urine RBC 0 /HPF (0-2) Urine WBC Occ /HPF (0-4) Urine Squamous Epithelial Cells Mod /LPF Urine Bacteria 0 /HPF (0-FEW) Urine Hyaline Casts Occasional /HPF Images Images CT imaging shows T7, T8 spinous process fractures with minimal displacement; L2 anterior superior compression fracture with 10% loss of height without involvement of posterior elements, no angulation; L3 anterior superior compression fracture with negligible loss of height, no angulation, no retropulsion at any location Assessment/Plan Assessment/Plan 51F s/p fall from mule with thoracic spinous process fractures and lumbar compression fractures -neurologically intact -analgesia/pain control as needed -recommend TLSO brace to be worn at all times when OOB -will need upright lumbar plain films with brace on in a couple weeks -discussed possible vertebral augmentation with IR - pt declines at this time but will consider if pain uncontrollable otherwise -follow RADHA KAYE MD Dec 20, 2016 11:36
[2016-12-20 15:00] VITALS: BP 122/81
[2016-12-20] MEDS ORDERED: HYDROcodone/APAP 5/325MG 1 TAB TABLET PO PRN (15:00)
[2016-12-20] MEDS ORDERED: SENNOSIDES 8.6 MG TABLET PO PRN (15:00)
[2016-12-20] MEDS: DOCUSATE SODIUM 100 MG CAPSULE. PO SCH (15:20)
[2016-12-20] MEDS: HYDROcodone/APAP 5/325MG 1 TAB TABLET PO PRN ×2 (15:20→20:28)
--- NOTE | 2016-12-20 15:33 | PDOC ---
PROGRESS NOTES Chief Complaint Chief Complaint Traumatic fall Depression Probable ETOH abuse Right breast infection Cholecystectomy Tonsillectomy History of Present Illness History of Present Illness 51 yo F fell off a horse and was trampled. Found to have fx of the following: R 7th rip, spinous processes (T7, T8), endplates (L2, L3). Spoke with pt and her family this AM. Pt is still in a lot of pain and asking for something else to work better. Bruises in the shape of hoof prints are now visible on the back and buttocks. Vitals Vitals Vital Signs Date Time Temp Pulse Resp B/P (MAP) Pulse Ox O2 Delivery O2 Flow Rate FiO2 12/20/16 13:11 20 Room Air 12/20/16 11:00 98.8 81 114/77 (89) 92 98.8 Physical Exam General: Alert, Oriented X3, Cooperative, No acute distress Heart: Regular rate Lungs: Clear Abdomen: Soft, No tenderness Extremities: No clubbing, No cyanosis, No edema Skin: No rashes, No breakdown Review of Systems Review of Systems Pt complains of generalized pain Pt complains of specific pain in her mid and lower back Assessment and Plan Assessmemt and Plan Problems Medical Problems: (1) Concussion Status: Acute (2) Right rib fracture Status: Acute (3) Spinous process fracture Status: Acute Traumatic fall: Imaging showed fx of the following: R 7th rip, spinous processes (T7, T8), endplates (L2, L3). Dr. Delgadillo, Kody, and Olvin have been consulted, appreciate the support Continue pain meds Continue muscle relaxer Continue PT/OT Continue breathing Tx Continue PPI Problems: Comment Review of Relevant I have reviewed the following items ekta (where applicable) has been applied. Labs Laboratory Tests Test 12/19/16 10:15 12/19/16 12:16 White Blood Count 8.9 x10^3/uL (4.0-11.0) Red Blood Count 4.89 x10^6/uL (3.50-5.40) Hemoglobin 14.3 g/dL (12.0-15.5) Hematocrit 42.2 % (36.0-47.0) Mean Corpuscular Volume 86 fL (79-100) Mean Corpuscular Hemoglobin 29 pg (25-35) Mean Corpuscular Hemoglobin Concent 34 g/dL (31-37) Red Cell Distribution Width 14.7 % (11.5-14.5) Platelet Count 279 x10^3/uL (140-400) Neutrophils (%) (Auto) 73 % (31-73) Lymphocytes (%) (Auto) 21 % (24-48) Monocytes (%) (Auto) 4 % (0-9) Eosinophils (%) (Auto) 2 % (0-3) Basophils (%) (Auto) 0 % (0-3) Neutrophils # (Auto) 6.5 x10^3uL (1.8-7.7) Lymphocytes # (Auto) 1.8 x10^3/uL (1.0-4.8) Monocytes # (Auto) 0.4 x10^3/uL (0.0-1.1) Eosinophils # (Auto) 0.1 x10^3/uL (0.0-0.7) Basophils # (Auto) 0.0 x10^3/uL (0.0-0.2) Sodium Level 137 mmol/L (136-145) Potassium Level 4.0 mmol/L (3.5-5.1) Chloride Level 103 mmol/L (98-107) Carbon Dioxide Level 24 mmol/L (21-32) Anion Gap 10 (6-14) Blood Urea Nitrogen 14 mg/dL (7-20) Creatinine 1.2 mg/dL (0.6-1.0) Estimated GFR (Cockcroft-Gault) 47.4 Glucose Level 201 mg/dL (70-99) Calcium Level 9.5 mg/dL (8.5-10.1) Urine Collection Type Unknown Urine Color Yellow Urine Clarity Clear Urine pH 6.5 Urine Specific [place] >=1.030 Urine Protein 30 mg/dL (NEG-TRACE) Urine Glucose (UA) Negative mg/dL (NEG) Urine Ketones (Stick) Negative mg/dL (NEG) Urine Blood Negative (NEG) Urine Nitrite Negative (NEG) Urine Bilirubin Negative (NEG) Urine Urobilinogen Dipstick 0.2 mg/dL (0.2 mg/dL) Urine Leukocyte Esterase Negative (NEG) Urine RBC 0 /HPF (0-2) Urine WBC Occ /HPF (0-4) Urine Squamous Epithelial Cells Mod /LPF Urine Bacteria 0 /HPF (0-FEW) Urine Hyaline Casts Occasional /HPF Medications Current Medications Fentanyl Citrate (Fentanyl 2ml Vial) 75 mcg 1X ONCE IV Last administered on 10:20; Start 12/19/16 at 10:15; Stop 12/19/16 at 10:29; Status DC Ondansetron HCl (Zofran) 4 mg 1X ONCE IV Last administered on 12/19/16 10:19 ; Start 12/19/16 at 10:15; Stop 12/19/16 at 10:29; Status DC Iohexol (Omnipaque 300 Mg/ml) 75 ml 1X ONCE IV Last administered on 12/19/16 10:52; Start 12/19/16 at 10:30; Stop 12/19/16 at 10:31; Status DC Morphine Sulfate 4 mg 1X ONCE IV Last administered on 12/19/16 10:45; Start 12/19/16 at 10:45; Stop 12/19/16 at 10:46; Status DC Iohexol (Omnipaque 300 Mg/ml) 75 ml STK-MED ONCE .ROUTE ; Start 12/19/16 at 10: 46; Stop 12/19/16 at 10:47; Status DC Morphine Sulfate 4 mg Q2HR PRN IV pain Last administered on 12/20/16 12:41; Start 12/19/16 at 11:30 Morphine Sulfate 2 mg PRN Q2HR PRN IV PAIN; Start 12/19/16 at 12:45; Stop 12/20 at 12:44; Status DC Calcium Acetate (Phoslo) 667 mg TIDWMEALS PO Last administered on 12/20/16 12: 41; Start 12/19/16 at 17:30 Pantoprazole Sodium (Protonix) 40 mg DAILYAC PO Last administered on 12/20/16 06:27; Start 12/20/16 at 07:30 Non-Formulary Medication 2 puff PRN Q4-6HRS IH ; Start 12/19/16 at 17:15; Status UNV Non-Formulary Medication 1 each DAILY INH ; Start 12/20/16 at 09:00; Status UNV Multivitamins (Thera M Plus) 1 tab DAILY PO ; Start 12/20/16 at 09:00; Stop at 09:00; Status DC Cyclobenzaprine HCl (Flexeril) 10 mg PRN Q8HRS PRN PO MUSCLE SPASMS Last administered on 12/20/16 09:26; Start 12/19/16 at 17:15 Albuterol Sulfate (Ventolin Neb Soln) 2.5 mg RTQID NEB Last administered on 12:45; Start 12/19/16 at 20:00 Albuterol Sulfate (Ventolin Neb Soln) 2.5 mg PRN Q6HRS PRN NEB SHORTNESS OF BREATH; Start 12/19/16 at 17:30 Budesonide (Pulmicort) 0.5 mg RTBID NEB Last administered on 12/20/16 08:26; Start 12/19/16 at 20:00 Multivitamins (Thera M Plus) 1 tab DAILY PO Last administered on 12/20/16 09: 26; Start 12/20/16 at 09:00 Acetaminophen/ Hydrocodone Bitart (Lortab 5/325) 2 tab PRN Q4HRS PRN PO PAIN; Start 12/20/16 at 15:00 Acetaminophen/ Hydrocodone Bitart (Lortab 5/325) 1 tab PRN Q4HRS PRN PO PAIN; Start 12/20/16 at 15:00 Sennosides (Senna) 17.2 mg PRN DAILY PRN PO CONSTIPATION; Start 12/20/16 at 15: 00 Docusate Sodium (Colace) 100 mg DAILY PO ; Start 12/20/16 at 15:00 Active Scripts Active Reported Breo Ellipta 100-25 Mcg INH (Fluticasone/Vilanterol) 1 Each Blst.w.dev 1 Each INH DAILY Protonix (Pantoprazole Sodium) 40 Mg Tablet.dr 1 Tab PO DAILY Proair Hfa Inhaler (Albuterol Sulfate) 8.5 Gm Hfa.aer.ad 2 Puff IH PRN Q4-6HRS Phoslo (Calcium Acetate) 667 Mg Capsule 667 Mg PO TIDWMEALS Daily Value (Multivitamin) 1 Each Tablet 1 Each PO DAILY Bupropion Hcl Sr (Bupropion Hcl) 150 Mg Tablet.er 40 Tab PO BID Vitals/I & O Vital Sign - Last 24 Hours 12/19/16 12/19/16 12/19/16 12/19/16 15:26 17:36 18:01 19:00 Temp 98.8 98.8 Pulse 78 Resp 20 20 18 B/P (MAP) 117/73 (88) Pulse Ox 93 O2 Delivery Room Air Room Air Room Air Room Air 12/19/16 12/19/16 12/19/16 12/19/16 20:00 20:19 20:50 23:11 Temp 99.3 99.3 Pulse 82 Resp 20 18 B/P (MAP) 114/65 (81) Pulse Ox 98 98 93 O2 Delivery Room Air Room Air Room Air 12/20/16 12/20/16 12/20/16 12/20/16 01:34 03:03 04:21 04:51 Temp 99.7 99.7 Pulse 79 Resp 20 18 20 B/P (MAP) 119/71 (87) Pulse Ox 93 95 95 95 O2 Delivery Room Air Room Air Room Air 12/20/16 12/20/16 12/20/16 12/20/16 06:28 07:00 08:00 08:19 Temp 99.3 99.3 Pulse 82 Resp 18 18 22 B/P (MAP) 118/74 (89) Pulse Ox 95 92 O2 Delivery Room Air Room Air Room Air Room Air 12/20/16 12/20/16 12/20/16 12/20/16 08:27 11:00 12:41 12:46 Temp 98.8 98.8 Pulse 81 Resp 18 20 B/P (MAP) 114/77 (89) Pulse Ox 92 O2 Delivery Room Air Room Air Room Air Room Air 12/20/16 13:11 Resp 20 O2 Delivery Room Air MANDY MAS III DO Dec 20, 2016 15:33
[2016-12-20 19:00] VITALS: BP 132/85
[2016-12-20] MEDS: oxyCODONE/APAP 5/325 1 TAB TABLET PO PRN (22:58)
[2016-12-20 23:00] VITALS: BP 109/66
[2016-12-21 03:00] VITALS: BP 106/72
[2016-12-21 03:47] LABS: BASO % 0 % (0-3); EOS % 3 % (0-3); HEMATOCRIT 36.8 % (36.0-47.0); HEMOGLOBIN 12.5 g/dL (12.0-15.5); LYMPH # 1.7 x10^3/uL (1.0-4.8); LYMPH % 22 % (24-48); MEAN CORPUSCULAR HEMOGLOBIN 29 pg (25-35); MEAN CORPUSCULAR HGB CONC 34 g/dL (31-37); MEAN CORPUSCULAR VOLUME 86 fL (79-100); MONO % 9 % (0-9); NEUT % 66 % (31-73); PLATELET COUNT 193 x10^3/uL (140-400); RED BLOOD COUNT 4.28 x10^6/uL (3.50-5.40); RED CELL DISTRIBUTION WIDTH 14.6 % (11.5-14.5); WHITE BLOOD COUNT 7.5 x10^3/uL (4.0-11.0)
[2016-12-21 03:59] LABS: CALCIUM 8.9 mg/dL (8.5-10.1); CREATININE 0.8 mg/dL (0.6-1.0); GFR 75.6
[2016-12-21] MEDS: CYCLOBENZAPRINE 10 MG TABLET. PO PRN (04:25)
[2016-12-21] MEDS: HYDROcodone/APAP 5/325MG 1 TAB TABLET PO PRN (04:25)
[2016-12-21] MEDS: PANTOPRAZOLE 40 MG TABLET.DR. PO SCH (06:17)
[2016-12-21 07:00] VITALS: BP 119/82
[2016-12-21] MEDS: ALBUTEROL SULFATE 2.5 MG/3 ML NEBU. NEB SCH ×4 (07:23→21:45)
[2016-12-21] MEDS: BUDESONIDE 0.5 MG/2 ML NEBU. NEB SCH ×2 (07:24→21:45)
[2016-12-21] MEDS: MULTIVITAMIN with MINERAL TABLET. PO SCH (08:53)
[2016-12-21] MEDS: CALCIUM ACETATE 667 MG CAPSULE PO SCH ×3 (08:53→17:00)
[2016-12-21] MEDS: DOCUSATE SODIUM 100 MG CAPSULE. PO SCH ×3 (08:53→21:00)
[2016-12-21] MEDS: oxyCODONE/APAP 5/325 1 TAB TABLET PO PRN ×3 (08:53→21:37)
[2016-12-21] MEDS ORDERED: BISACODYL 10 MG SUPP.RECT. PR PRN (09:15)
[2016-12-21] MEDS ORDERED: MAGNESIUM HYDROXIDE 2,400 MG/30 ML ORAL.SUSP. PO PRN (09:15)
--- NOTE | 2016-12-21 09:27 | ACF ---
Admit Criteria Forms Admit Criteria Forms Admit Criteria Forms MUSCULOSKELETAL DISEASE GRG Clinical Indications for Admission to Inpatient Care (Place 'X' for any and all applicable criteria): Hospital admission is needed for appropriate care of the patient because of 1 or more of the following: [X ]I. Fracture, dislocation, or other musculoskeletal injury requiring inpatient care(medical) as indicated by 1 or more of the following(4)(5)(6)(7) [ ]a) Vertebral fracture requiring observation for instability or neurologic compromise (8) [ ]b) Compartment syndrome (proven or cannot be ruled out during observation level of care) (9) [ ]c) Limb-threatening injury [ ]d) Major injury requiring inpatient stabilization such as traction initiation or external fixation before internal fixation or closure of complex or open fracture [X ]e) Major injury requiring inpatient treatment after emergency or observation level care (as appropriate) [ X]f) Severe pain requiring acute inpatient management [ ]g) Injury with suspicion of abuse or neglect (eg., child, dependent elderly) [ ]II. Newly diagnosed or suspected bone, joint, or orthopedic device infection (e.g., osteomyelitis, septic arthritis) needing 1 or more of the following(1)(2)(3) [ ]a) IV antibiotics that cannot be initiated in other than inpatient setting (e.g., patient too unstable or home infusion not available) [ ]b) Device removal or replacement [ ]c) Bone or soft tissue debridement [ ]d) Joint drainage (drain placement or repetitive aspirations) [ ]III. Severe rheumatologic disease (e.g., systemic lupus erythematosus, rheumatoid arthritis) with complications or comorbidities (Also use Optimal Recovery Care Criteria or General Recovery Criteria as appropriate on the basis of predominant condition), including 1 or more of the following( 10)(11)(12)(13) [ ]a) Severe infection (e.g., HOME APPLIANCE INSTALLER infection, sepsis) (14) [ ]b) Respiratory complications, including 1 or more of the following : [ ]i) Pleural effusion with respiratory compromise [ ]ii) Pulmonary hypertension with congestive failure [ ]iii) Respiratory failure [ ]iv) Pulmonary hemorrhage (15) [ ]c) Hematologic disease, including 1 or more of the following: [ ]i) Coagulopathy with bleeding [ ]ii) Thrombosis with hypercoagulable state [ ]iii) Thrombotic thrombocytopenic purpura [ ]d) Cerebritis with seizures, psychosis, or other severe abnormalities [ ]e) Vertebral destruction with monitoring needed for cervical myelopathy& possible respiratory compromise [ ]f) Exacerbation that requires inpatient treatment (e.g., intravenous immunosuppression) (16) [ ]g) Acute renal failure [ ]h) Cerebritis with seizures, psychosis, Altered mental status, or other neurologic abnormalities [ ]i) Pericardial effusion with tamponade [ ]j) Vertebral destruction, with monitoring needed for cervical myelopathy and possible respiratory compromise [ ]IV. Severe vasculitis with complications or comorbidities (Also use Optimal Recovery Care Criteria General Recovery Criteria as appropriate on the basis of predominant condition), including 1 or more of the following(11)(12)(17)(18)(19)(20) [ ]a) Exacerbation that requires inpatient treatment (e.g., intravenous immunosuppression) (19)(21) [ ]b) Pulmonary hemorrhage (15) [ ]c) HOME APPLIANCE INSTALLER vasculitis with seizures, psychosis, Altered mental status that is severe or persistent, or other severe abnormalities (22) [ ]d) Cerebral infarction [ ]e) Gastrointestinal ischemia [ ]f) Gangrene or threatened amputation [ ]g) Renal failure (16) [ ]h) Other significant complications of vasculitis ( eg., tissue or organ ischemia, organ dysfunction ) [ ]V. Severe myopathy as indicated by 1 or more of the following (28)(29) [ ]a) New onset of airway compromise or inability to swallow [ ]b) Respiratory deterioration with observation needed for impending respiratory failure [ ]c) Exacerbation that requires inpatient treatment (e.g., intravenous immunosuppression) [ ]. Severe crystal gout (arthropathy) indicated by 1 or more of the following (23)(24) [ ]a) Severe pain requiring acute inpatient management [ ]b) Exacerbation that requires inpatient treatment (e.g., intravenous treatment) [ ]VII.Rhabdomyolysis and 1 or more of the following (25)(26)(27) [ ]a) Acute renal failure [ ]b) Need for intravenous hydration after emergency or observation level care (as appropriate) [ ]c) Inability to maintain oral hydration [ ]d) Change in mental status [ ]e) Electrolyte abnormality that remains after emergency or observation level care (as appropriate) [ ]VIII Post amputation complication, as indicated by ANY ONE of the following [ ]a) Infection [ ]b) Dehiscence [ ]c) Myodesis failure [ ]IX. Severe pain requiring acute inpatient management due to musculoskeletal condition [ ]X. Musculoskeletal Disease and ALL of the following: [ ]a) Symptom or finding for which emergency and observation care have failed or are not considered appropriate (Use General Criteria: Observation Care as appropriate) [ ]b) Presence of ANY ONE of the following [ ]i) A General Admission Criteria [ ]ii) A Pediatric General Admission Criteria The original [facility] [employer] content created by [facility] has been revised. The portions of the content which have been revised are identified through the use of italic text or in bold, and [facility] has neither reviewed nor approved the modified material. All other unmodified content is copyright [facility]. Please see references footnoted in the original [facility] edition 2016 TANIA PRADO Dec 21, 2016 09:27
[2016-12-21] MEDS: SENNOSIDES/DOCUSATE 8.6/50MG TABLET. PO SCH ×2 (09:56→21:36)
--- NOTE | 2016-12-21 10:02 | PDOC ---
SURGICAL PROGRESS NOTE Subjective cramping lower abdominal/back pain no emesis, intermittent nausea pain with deep breathing Vital Signs Vital Signs Date Time Temp Pulse Resp B/P (MAP) Pulse Ox O2 Delivery O2 Flow Rate FiO2 12/21/16 09:53 Room Air 12/21/16 07:26 94 12/21/16 07:00 98.1 76 18 119/82 (94) 98.1 I&O Intake and Output 12/22/16 07:00 Intake Total 120 ml Balance 120 ml Intake Oral 120 ml General: Alert, Oriented X3, Cooperative, No acute distress Abdomen: Soft, Other (mild tenderness to lower abdomen ) Labs Laboratory Tests Test 12/19/16 10:15 12/19/16 12:16 12/21/16 03:20 White Blood Count 8.9 x10^3/uL (4.0-11.0) 7.5 x10^3/uL (4.0-11.0) Red Blood Count 4.89 x10^6/uL (3.50-5.40) 4.28 x10^6/uL (3.50-5.40) Hemoglobin 14.3 g/dL (12.0-15.5) 12.5 g/dL (12.0-15.5) Hematocrit 42.2 % (36.0-47.0) 36.8 % (36.0-47.0) Mean Corpuscular Volume 86 fL (79-100) 86 fL (79-100) Mean Corpuscular Hemoglobin 29 pg (25-35) 29 pg (25-35) Mean Corpuscular Hemoglobin Concent 34 g/dL (31-37) 34 g/dL (31-37) Red Cell Distribution Width 14.7 % (11.5-14.5) 14.6 % (11.5-14.5) Platelet Count 279 x10^3/uL (140-400) 193 x10^3/uL (140-400) Neutrophils (%) (Auto) 73 % (31-73) 66 % (31-73) Lymphocytes (%) (Auto) 21 % (24-48) 22 % (24-48) Monocytes (%) (Auto) 4 % (0-9) 9 % (0-9) Eosinophils (%) (Auto) 2 % (0-3) 3 % (0-3) Basophils (%) (Auto) 0 % (0-3) 0 % (0-3) Neutrophils # (Auto) 6.5 x10^3uL (1.8-7.7) 5.0 x10^3uL (1.8-7.7) Lymphocytes # (Auto) 1.8 x10^3/uL (1.0-4.8) 1.7 x10^3/uL (1.0-4.8) Monocytes # (Auto) 0.4 x10^3/uL (0.0-1.1) 0.7 x10^3/uL (0.0-1.1) Eosinophils # (Auto) 0.1 x10^3/uL (0.0-0.7) 0.2 x10^3/uL (0.0-0.7) Basophils # (Auto) 0.0 x10^3/uL (0.0-0.2) 0.0 x10^3/uL (0.0-0.2) Sodium Level 137 mmol/L (136-145) 137 mmol/L (136-145) Potassium Level 4.0 mmol/L (3.5-5.1) 4.0 mmol/L (3.5-5.1) Chloride Level 103 mmol/L (98-107) 102 mmol/L (98-107) Carbon Dioxide Level 24 mmol/L (21-32) 26 mmol/L (21-32) Anion Gap 10 (6-14) 9 (6-14) Blood Urea Nitrogen 14 mg/dL (7-20) 6 mg/dL (7-20) Creatinine 1.2 mg/dL (0.6-1.0) 0.8 mg/dL (0.6-1.0) Estimated GFR (Cockcroft-Gault) 47.4 75.6 Glucose Level 201 mg/dL (70-99) 144 mg/dL (70-99) Calcium Level 9.5 mg/dL (8.5-10.1) 8.9 mg/dL (8.5-10.1) Urine Collection Type Unknown Urine Color Yellow Urine Clarity Clear Urine pH 6.5 Urine Specific [place] >=1.030 Urine Protein 30 mg/dL (NEG-TRACE) Urine Glucose (UA) Negative mg/dL (NEG) Urine Ketones (Stick) Negative mg/dL (NEG) Urine Blood Negative (NEG) Urine Nitrite Negative (NEG) Urine Bilirubin Negative (NEG) Urine Urobilinogen Dipstick 0.2 mg/dL (0.2 mg/dL) Urine Leukocyte Esterase Negative (NEG) Urine RBC 0 /HPF (0-2) Urine WBC Occ /HPF (0-4) Urine Squamous Epithelial Cells Mod /LPF Urine Bacteria 0 /HPF (0-FEW) Urine Hyaline Casts Occasional /HPF Laboratory Tests Test 12/21/16 03:20 White Blood Count 7.5 x10^3/uL (4.0-11.0) Red Blood Count 4.28 x10^6/uL (3.50-5.40) Hemoglobin 12.5 g/dL (12.0-15.5) Hematocrit 36.8 % (36.0-47.0) Mean Corpuscular Volume 86 fL (79-100) Mean Corpuscular Hemoglobin 29 pg (25-35) Mean Corpuscular Hemoglobin Concent 34 g/dL (31-37) Red Cell Distribution Width 14.6 % (11.5-14.5) Platelet Count 193 x10^3/uL (140-400) Neutrophils (%) (Auto) 66 % (31-73) Lymphocytes (%) (Auto) 22 % (24-48) Monocytes (%) (Auto) 9 % (0-9) Eosinophils (%) (Auto) 3 % (0-3) Basophils (%) (Auto) 0 % (0-3) Neutrophils # (Auto) 5.0 x10^3uL (1.8-7.7) Lymphocytes # (Auto) 1.7 x10^3/uL (1.0-4.8) Monocytes # (Auto) 0.7 x10^3/uL (0.0-1.1) Eosinophils # (Auto) 0.2 x10^3/uL (0.0-0.7) Basophils # (Auto) 0.0 x10^3/uL (0.0-0.2) Sodium Level 137 mmol/L (136-145) Potassium Level 4.0 mmol/L (3.5-5.1) Chloride Level 102 mmol/L (98-107) Carbon Dioxide Level 26 mmol/L (21-32) Anion Gap 9 (6-14) Blood Urea Nitrogen 6 mg/dL (7-20) Creatinine 0.8 mg/dL (0.6-1.0) Estimated GFR (Cockcroft-Gault) 75.6 Glucose Level 144 mg/dL (70-99) Calcium Level 8.9 mg/dL (8.5-10.1) Problem List Problems Medical Problems: (1) Concussion Status: Acute (2) Right rib fracture Status: Acute (3) Spinous process fracture Status: Acute Assessment/Plan s/p fall neuro evaluated no gen surg plans Problems: JUMA BRIGGS APRN Dec 21, 2016 10:02
[2016-12-21] MEDS: MORPHINE SULFATE 4 MG/ML DISP.SYRIN. IV PRN ×2 (10:37→13:20)
[2016-12-21 10:53] VITALS: BP 150/96
--- NOTE | 2016-12-21 11:17 | PDOC ---
SUBJECTIVE Subjective Received TLSO brace. Reports back pain. Denies acute changes otherwise. ROS: no radicular-type pain, no paresthesias, no focal weakness OBJECTIVE Vital Signs Vital Signs Date Time Temp Pulse Resp B/P (MAP) Pulse Ox O2 Delivery O2 Flow Rate FiO2 12/21/16 10:53 98.8 90 18 150/96 (114) 93 Room Air 98.8 12/21/16 10:37 Room Air 12/21/16 09:53 Room Air 12/21/16 08:53 Room Air 12/21/16 08:45 Room Air 12/21/16 07:26 94 Room Air 12/21/16 07:26 94 Room Air 12/21/16 07:25 Room Air 12/21/16 07:00 98.1 76 18 119/82 (94) 93 Room Air 98.1 12/21/16 05:25 20 95 Room Air 12/21/16 04:25 20 95 Room Air 12/21/16 03:00 98.1 78 18 106/72 (83) 95 Room Air 98.1 12/21/16 00:00 20 96 12/20/16 23:00 98.6 79 22 109/66 (80) 96 Room Air 98.6 12/20/16 22:58 20 94 Room Air 12/20/16 20:28 20 94 Room Air 12/20/16 20:00 Room Air 12/20/16 19:46 94 Room Air 12/20/16 19:00 98.2 87 20 132/85 (101) 94 Room Air 98.2 12/20/16 16:06 93 Room Air 12/20/16 15:49 20 Room Air 12/20/16 15:20 20 Room Air 12/20/16 15:19 20 Room Air 12/20/16 15:00 99.7 80 18 122/81 (95) 90 Room Air 99.7 12/20/16 12:46 Room Air 12/20/16 12:41 20 Room Air I & O Intake and Output 12/22/16 07:00 Intake Total 120 ml Balance 120 ml Intake Oral 120 ml PHYSICAL EXAM Physical Exam AAOx4, mild distress from back pain, lying in bed with TLSO on, SWEET 5/5, sensation intact LT ASSESSMENT/PLAN Assessment/Plan thoracic spinous process fractures and lumbar compression fractures -TLSO on when OOB for lumbar fractures, upright lumbar plain films with brace on in couple weeks -analgesia/pain control -may benefit from vertebral augmentation Problems: COMMENT Lab Laboratory Tests Test 12/21/16 03:20 White Blood Count 7.5 x10^3/uL (4.0-11.0) Red Blood Count 4.28 x10^6/uL (3.50-5.40) Hemoglobin 12.5 g/dL (12.0-15.5) Hematocrit 36.8 % (36.0-47.0) Mean Corpuscular Volume 86 fL (79-100) Mean Corpuscular Hemoglobin 29 pg (25-35) Mean Corpuscular Hemoglobin Concent 34 g/dL (31-37) Red Cell Distribution Width 14.6 % (11.5-14.5) Platelet Count 193 x10^3/uL (140-400) Neutrophils (%) (Auto) 66 % (31-73) Lymphocytes (%) (Auto) 22 % (24-48) Monocytes (%) (Auto) 9 % (0-9) Eosinophils (%) (Auto) 3 % (0-3) Basophils (%) (Auto) 0 % (0-3) Neutrophils # (Auto) 5.0 x10^3uL (1.8-7.7) Lymphocytes # (Auto) 1.7 x10^3/uL (1.0-4.8) Monocytes # (Auto) 0.7 x10^3/uL (0.0-1.1) Eosinophils # (Auto) 0.2 x10^3/uL (0.0-0.7) Basophils # (Auto) 0.0 x10^3/uL (0.0-0.2) Sodium Level 137 mmol/L (136-145) Potassium Level 4.0 mmol/L (3.5-5.1) Chloride Level 102 mmol/L (98-107) Carbon Dioxide Level 26 mmol/L (21-32) Anion Gap 9 (6-14) Blood Urea Nitrogen 6 mg/dL (7-20) Creatinine 0.8 mg/dL (0.6-1.0) Estimated GFR (Cockcroft-Gault) 75.6 Glucose Level 144 mg/dL (70-99) Calcium Level 8.9 mg/dL (8.5-10.1) RADHA KAYE MD Dec 21, 2016 11:17
--- NOTE | 2016-12-21 12:01 | PDOC2 ---
Consult: VIR Consult S: 51 yo female with persistent back pain s/p fall and trampling from a horse a few days ago. Pt. has superior endplate compression fractures of L2 and L3 as well as multiple transverse process and rib fractures. Currently in TLSO brace while OOB. No radiculopathy or weakness reported. O: CT reviewed and shows mild superior endplate compressions at L2 and L3 without retropulsion. Bone mineral density is grossly normal. A/P: Acute post-traumatic compression fractures of L2 and L3 without known osteoporosis. I favor conservative therapy over vertebroplasty for these fractures in otherwise healthy bone. EITAN COVINGTON MD Dec 21, 2016 12:00
[2016-12-21] MEDS: BISACODYL 5 MG TABLET.DR. PO SCH (12:15)
[2016-12-21] MEDS ORDERED: ONDANSETRON PF 4 MG/2 ML VIAL. IV PRN (13:15)
[2016-12-21] MEDS ORDERED: DOCUSATE SODIUM 100 MG CAPSULE. PO PRN (13:15)
[2016-12-21] MEDS ORDERED: hydrALAZINE 20 MG/ML VIAL. IVP PRN (13:15)
[2016-12-21] MEDS ORDERED: traMADol 50 MG TABLET PO PRN (13:15)
[2016-12-21] MEDS ORDERED: MORPHINE SULFATE 4 MG/ML DISP.SYRIN. IV PRN (13:15)
[2016-12-21] MEDS ORDERED: ACETAMINOPHEN 325 MG TABLET. PO PRN (13:15)
--- NOTE | 2016-12-21 14:48 | PDOC ---
PROGRESS NOTES Chief Complaint Chief Complaint Traumatic fall with L2, L3 compressive fx, and rib fx intractable lumbago with fall Depression Probable ETOH abuse h/o Right breast infection Cholecystectomy Tonsillectomy constipation h/o COPD CAMMY, vasomotor plan: fu with Neurosx, no intervention, need back brace, recommend IR consult, done, no sx recommended too fU WITH dr. taveras pain control ,slightly better with percocet, cont PTOT SW for possible rehab add stool softner dvt ppx check vitD History of Present Illness History of Present Illness ROS: no fever, chills, sob, chest pain 51 yo F fell off a horse and was trampled. Found to have fx of the following: R 7th rip, spinous processes (T7, T8), endplates (L2, L3). Spoke with pt and her family this AM. Bruises in the shape of hoof prints are now visible on the back and buttocks. cont having severe lumbargo, cannot move or get out of bed constipation on méndez Vitals Vitals Vital Signs Date Time Temp Pulse Resp B/P (MAP) Pulse Ox O2 Delivery O2 Flow Rate FiO2 12/21/16 13:20 Room Air 12/21/16 11:25 94 12/21/16 10:53 98.8 90 18 150/96 (114) 98.8 Physical Exam General: Alert, Oriented X3, Cooperative, No acute distress Heart: Regular rate Lungs: Clear Abdomen: Soft, Other (mild tenderness to lower abdomen ) Extremities: No clubbing, No cyanosis, No edema Skin: No rashes, No breakdown Labs LABS Laboratory Tests Test 12/21/16 03:20 White Blood Count 7.5 x10^3/uL (4.0-11.0) Red Blood Count 4.28 x10^6/uL (3.50-5.40) Hemoglobin 12.5 g/dL (12.0-15.5) Hematocrit 36.8 % (36.0-47.0) Mean Corpuscular Volume 86 fL (79-100) Mean Corpuscular Hemoglobin 29 pg (25-35) Mean Corpuscular Hemoglobin Concent 34 g/dL (31-37) Red Cell Distribution Width 14.6 % (11.5-14.5) Platelet Count 193 x10^3/uL (140-400) Neutrophils (%) (Auto) 66 % (31-73) Lymphocytes (%) (Auto) 22 % (24-48) Monocytes (%) (Auto) 9 % (0-9) Eosinophils (%) (Auto) 3 % (0-3) Basophils (%) (Auto) 0 % (0-3) Neutrophils # (Auto) 5.0 x10^3uL (1.8-7.7) Lymphocytes # (Auto) 1.7 x10^3/uL (1.0-4.8) Monocytes # (Auto) 0.7 x10^3/uL (0.0-1.1) Eosinophils # (Auto) 0.2 x10^3/uL (0.0-0.7) Basophils # (Auto) 0.0 x10^3/uL (0.0-0.2) Sodium Level 137 mmol/L (136-145) Potassium Level 4.0 mmol/L (3.5-5.1) Chloride Level 102 mmol/L (98-107) Carbon Dioxide Level 26 mmol/L (21-32) Anion Gap 9 (6-14) Blood Urea Nitrogen 6 mg/dL (7-20) Creatinine 0.8 mg/dL (0.6-1.0) Estimated GFR (Cockcroft-Gault) 75.6 Glucose Level 144 mg/dL (70-99) Calcium Level 8.9 mg/dL (8.5-10.1) Assessment and Plan Assessmemt and Plan Problems Medical Problems: (1) Concussion Status: Acute (2) Right rib fracture Status: Acute (3) Spinous process fracture Status: Acute Problems: Comment Review of Relevant I have reviewed the following items ekta (where applicable) has been applied. Labs Laboratory Tests Test 12/21/16 03:20 White Blood Count 7.5 x10^3/uL (4.0-11.0) Red Blood Count 4.28 x10^6/uL (3.50-5.40) Hemoglobin 12.5 g/dL (12.0-15.5) Hematocrit 36.8 % (36.0-47.0) Mean Corpuscular Volume 86 fL (79-100) Mean Corpuscular Hemoglobin 29 pg (25-35) Mean Corpuscular Hemoglobin Concent 34 g/dL (31-37) Red Cell Distribution Width 14.6 % (11.5-14.5) Platelet Count 193 x10^3/uL (140-400) Neutrophils (%) (Auto) 66 % (31-73) Lymphocytes (%) (Auto) 22 % (24-48) Monocytes (%) (Auto) 9 % (0-9) Eosinophils (%) (Auto) 3 % (0-3) Basophils (%) (Auto) 0 % (0-3) Neutrophils # (Auto) 5.0 x10^3uL (1.8-7.7) Lymphocytes # (Auto) 1.7 x10^3/uL (1.0-4.8) Monocytes # (Auto) 0.7 x10^3/uL (0.0-1.1) Eosinophils # (Auto) 0.2 x10^3/uL (0.0-0.7) Basophils # (Auto) 0.0 x10^3/uL (0.0-0.2) Sodium Level 137 mmol/L (136-145) Potassium Level 4.0 mmol/L (3.5-5.1) Chloride Level 102 mmol/L (98-107) Carbon Dioxide Level 26 mmol/L (21-32) Anion Gap 9 (6-14) Blood Urea Nitrogen 6 mg/dL (7-20) Creatinine 0.8 mg/dL (0.6-1.0) Estimated GFR (Cockcroft-Gault) 75.6 Glucose Level 144 mg/dL (70-99) Calcium Level 8.9 mg/dL (8.5-10.1) Laboratory Tests Test 12/21/16 03:20 White Blood Count 7.5 x10^3/uL (4.0-11.0) Red Blood Count 4.28 x10^6/uL (3.50-5.40) Hemoglobin 12.5 g/dL (12.0-15.5) Hematocrit 36.8 % (36.0-47.0) Mean Corpuscular Volume 86 fL (79-100) Mean Corpuscular Hemoglobin 29 pg (25-35) Mean Corpuscular Hemoglobin Concent 34 g/dL (31-37) Red Cell Distribution Width 14.6 % (11.5-14.5) Platelet Count 193 x10^3/uL (140-400) Neutrophils (%) (Auto) 66 % (31-73) Lymphocytes (%) (Auto) 22 % (24-48) Monocytes (%) (Auto) 9 % (0-9) Eosinophils (%) (Auto) 3 % (0-3) Basophils (%) (Auto) 0 % (0-3) Neutrophils # (Auto) 5.0 x10^3uL (1.8-7.7) Lymphocytes # (Auto) 1.7 x10^3/uL (1.0-4.8) Monocytes # (Auto) 0.7 x10^3/uL (0.0-1.1) Eosinophils # (Auto) 0.2 x10^3/uL (0.0-0.7) Basophils # (Auto) 0.0 x10^3/uL (0.0-0.2) Sodium Level 137 mmol/L (136-145) Potassium Level 4.0 mmol/L (3.5-5.1) Chloride Level 102 mmol/L (98-107) Carbon Dioxide Level 26 mmol/L (21-32) Anion Gap 9 (6-14) Blood Urea Nitrogen 6 mg/dL (7-20) Creatinine 0.8 mg/dL (0.6-1.0) Estimated GFR (Cockcroft-Gault) 75.6 Glucose Level 144 mg/dL (70-99) Calcium Level 8.9 mg/dL (8.5-10.1) Medications Current Medications Fentanyl Citrate (Fentanyl 2ml Vial) 75 mcg 1X ONCE IV Last administered on 10:20; Start 12/19/16 at 10:15; Stop 12/19/16 at 10:29; Status DC Ondansetron HCl (Zofran) 4 mg 1X ONCE IV Last administered on 12/19/16 10:19 ; Start 12/19/16 at 10:15; Stop 12/19/16 at 10:29; Status DC Iohexol (Omnipaque 300 Mg/ml) 75 ml 1X ONCE IV Last administered on 12/19/16 10:52; Start 12/19/16 at 10:30; Stop 12/19/16 at 10:31; Status DC Morphine Sulfate 4 mg 1X ONCE IV Last administered on 12/19/16 10:45; Start 12/19/16 at 10:45; Stop 12/19/16 at 10:46; Status DC Iohexol (Omnipaque 300 Mg/ml) 75 ml STK-MED ONCE .ROUTE ; Start 12/19/16 at 10: 46; Stop 12/19/16 at 10:47; Status DC Morphine Sulfate 4 mg Q2HR PRN IV pain Last administered on 12/21/16 13:20; Start 12/19/16 at 11:30 Morphine Sulfate 2 mg PRN Q2HR PRN IV PAIN; Start 12/19/16 at 12:45; Stop 12/20 at 12:44; Status DC Calcium Acetate (Phoslo) 667 mg TIDWMEALS PO Last administered on 12/21/16 12: 15; Start 12/19/16 at 17:30 Pantoprazole Sodium (Protonix) 40 mg DAILYAC PO Last administered on 12/21/16 06:17; Start 12/20/16 at 07:30 Non-Formulary Medication 2 puff PRN Q4-6HRS IH ; Start 12/19/16 at 17:15; Status UNV Non-Formulary Medication 1 each DAILY INH ; Start 12/20/16 at 09:00; Status UNV Multivitamins (Thera M Plus) 1 tab DAILY PO ; Start 12/20/16 at 09:00; Stop at 09:00; Status DC Cyclobenzaprine HCl (Flexeril) 10 mg PRN Q8HRS PRN PO MUSCLE SPASMS Last administered on 12/21/16 04:25; Start 12/19/16 at 17:15 Albuterol Sulfate (Ventolin Neb Soln) 2.5 mg RTQID NEB Last administered on 11:23; Start 12/19/16 at 20:00 Albuterol Sulfate (Ventolin Neb Soln) 2.5 mg PRN Q6HRS PRN NEB SHORTNESS OF BREATH; Start 12/19/16 at 17:30 Budesonide (Pulmicort) 0.5 mg RTBID NEB Last administered on 12/21/16 07:24; Start 12/19/16 at 20:00 Multivitamins (Thera M Plus) 1 tab DAILY PO Last administered on 12/21/16 08: 53; Start 12/20/16 at 09:00 Acetaminophen/ Hydrocodone Bitart (Lortab 5/325) 2 tab PRN Q4HRS PRN PO PAIN Last administered on 12/21/16 04:25; Start 12/20/16 at 15:00; Stop 12/21/16 at 09:08; Status DC Acetaminophen/ Hydrocodone Bitart (Lortab 5/325) 1 tab PRN Q4HRS PRN PO PAIN; Start 12/20/16 at 15:00 Sennosides (Senna) 17.2 mg PRN DAILY PRN PO CONSTIPATION Last administered on 15:20; Start 12/20/16 at 15:00 Docusate Sodium (Colace) 100 mg DAILY PO Last administered on 12/21/16 08:53; Start 12/20/16 at 15:00 Oxycodone/ Acetaminophen (Percocet 5/325) 1 tab PRN Q4HRS PRN PO PAIN Last administered on 12/21/16 08:53; Start 12/20/16 at 15:30 Senna/Docusate Sodium (Senna Plus) 1 tab BID PO Last administered on 12/21/16 09:56; Start 12/21/16 at 10:00 Docusate Sodium (Colace) 100 mg BID PO ; Start 12/21/16 at 10:00 Magnesium Hydroxide (Milk Of Magnesia) 2,400 mg PRN Q12HR PRN PO CONSTIPATION; Start 12/21/16 at 09:15 Bisacodyl (Dulcolax Supp) 10 mg PRN DAILY PRN MD CONSTIPATION; Start 12/21/16 at 09:15 Bisacodyl (Dulcolax Tab) 10 mg DAILY PO Last administered on 12/21/16 12:15; Start 12/21/16 at 11:00 Acetaminophen (Tylenol) 650 mg PRN Q6HRS PRN PO FEVER; Start 12/21/16 at 13:15 Ondansetron HCl (Zofran) 4 mg PRN Q6HRS PRN IV NAUSEA/VOMITING; Start 12/21/16 at 13:15 Morphine Sulfate 2 mg PRN Q2HR PRN IV PAIN; Start 12/21/16 at 13:15 Tramadol HCl (Ultram) 50 mg PRN Q6HRS PRN PO PAIN mild to MOD; Start 12/21/16 at 13:15 Hydralazine HCl (Apresoline) 10 mg PRN Q4HRS PRN IVP ELEVATED BP, SEE COMMENTS ; Start 12/21/16 at 13:15 Docusate Sodium (Colace) 100 mg PRN DAILY PRN PO CONSTIPATION; Start 12/21/16 at 13:15 Active Scripts Active Reported Breo Ellipta 100-25 Mcg INH (Fluticasone/Vilanterol) 1 Each Blst.w.dev 1 Each INH DAILY Protonix (Pantoprazole Sodium) 40 Mg Tablet.dr 1 Tab PO DAILY Proair Hfa Inhaler (Albuterol Sulfate) 8.5 Gm Hfa.aer.ad 2 Puff IH PRN Q4-6HRS Phoslo (Calcium Acetate) 667 Mg Capsule 667 Mg PO TIDWMEALS Daily Value (Multivitamin) 1 Each Tablet 1 Each PO DAILY Bupropion Hcl Sr (Bupropion Hcl) 150 Mg Tablet.er 40 Tab PO BID Vitals/I & O Vital Sign - Last 24 Hours 12/20/16 12/20/16 12/20/16 12/20/16 15:00 15:19 15:20 15:49 Temp 99.7 99.7 Pulse 80 Resp 18 20 20 20 B/P (MAP) 122/81 (95) Pulse Ox 90 O2 Delivery Room Air Room Air Room Air 12/20/16 12/20/16 12/20/16 12/20/16 16:06 19:00 19:46 20:00 Temp 98.2 98.2 Pulse 87 Resp 20 B/P (MAP) 132/85 (101) Pulse Ox 93 94 94 O2 Delivery Room Air Room Air Room Air Room Air 12/20/16 12/20/16 12/20/16 12/21/16 20:28 22:58 23:00 00:00 Temp 98.6 98.6 Pulse 79 Resp 20 20 22 20 B/P (MAP) 109/66 (80) Pulse Ox 94 94 96 96 O2 Delivery Room Air Room Air Room Air 12/21/16 12/21/16 12/21/16 12/21/16 03:00 04:25 05:25 07:00 Temp 98.1 98.1 98.1 98.1 Pulse 78 76 Resp 18 20 20 18 B/P (MAP) 106/72 (83) 119/82 (94) Pulse Ox 95 95 95 93 O2 Delivery Room Air Room Air Room Air Room Air 12/21/16 12/21/16 12/21/16 12/21/16 07:25 07:26 07:26 08:45 Pulse Ox 94 94 O2 Delivery Room Air Room Air Room Air Room Air 12/21/16 12/21/16 12/21/16 12/21/16 08:53 09:53 10:37 10:53 Temp 98.8 98.8 Pulse 90 Resp 18 B/P (MAP) 150/96 (114) Pulse Ox 93 O2 Delivery Room Air Room Air Room Air Room Air 12/21/16 12/21/16 12/21/16 11:10 11:25 13:20 Pulse Ox 94 O2 Delivery Room Air Room Air Room Air Intake and Output 12/21/16 12/21/16 12/22/16 15:00 23:00 07:00 Intake Total 120 ml Output Total 1025 ml Balance -905 ml EDIE CALLOWAY MD Dec 21, 2016 14:48
[2016-12-21 15:01] VITALS: BP 150/94
[2016-12-21] MEDS: ENOXAPARIN 40 MG/0.4 ML SYRINGE. SQ SCH (15:08)
[2016-12-21 19:10] VITALS: BP 129/86
[2016-12-21 23:10] VITALS: BP 142/92
--- NOTE | 2016-12-22 01:26 | CONS ---
DATE OF CONSULTATION: 12/21/2016 REASON FOR CONSULTATION: I saw her on 12/21/2016 at the request of Dr. Trevino for rehab evaluation. HISTORY OF PRESENT ILLNESS: This is a 51-year-old female who actually was buckled off a mule, it then trampled her. She was admitted through the Emergency Room and had radiological studies, and she was found with a fracture of the ribs on the right side and also it mildly displaced right lateral 7th rib fracture, mildly displaced spinous process fractures at T7-T8, mild endplate sclerosis asymmetric to the right at T8-T9 and T9-T10, maybe secondary to posttraumatic reactive changes. No thoracic vertebral body compression fracture was identified. No pneumothorax, bibasilar subsegmental atelectasis without evidence of infiltrate, diffuse hepatic steatosis and chronic diverticulosis without adjacent inflammatory changes to suggest diverticulitis. CT scan of the cervical spine revealed degenerative changes and 5-mm cyst in the right thyroid lobe, and CT scan of the brain was within normal limits. Lumbar spine CT scan revealed mild anterior wedge compression of L2 with approximately 10% loss of height and superior endplate fracture involving L3 without any significant loss of height. PAST MEDICAL HISTORY: Includes depression, alcohol abuse, plantar fasciitis, right breast infection, cholecystectomy and tonsillectomy. ALLERGIES: She is known allergic to VANCOMYCIN. FAMILY HISTORY: Hypertension. 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 PHYSICAL EXAMINATION: Today revealed a middle-aged female. She is alert and oriented to time, place, person and circumstance and follows commands appropriately significant limitation of movement of thoracolumbar spine with diffuse tenderness to palpation over the mid and lower thoracic and lumbar spine and adjoining paraspinal muscles and also over right ribcage area. She had 5/5 grade muscle strength in her extremities, and deep tendon reflexes are 1 to 2+ and symmetrical and she had equal perception of touch and pinprick sensation bilaterally. She requires maximal help with rolling from side to side. I have not tested her transfer or ambulation skills at this time. ASSESSMENT: The patient who fell off a horse with thoracic and lumbar sprain with mild L1-L2 vertebral body compression fractures and also right 7th rib fracture and fracture of mid thoracic spine. RECOMMENDATIONS: Agree with the plans for getting her thoracolumbar support and to get her up as tolerated. She may benefit from short-term inpatient rehab program if she continues to require help with her mobility and self-care. Dr. Trevino, I appreciate asking me to participate in the care of this interesting patient. I will be glad to follow her with you as needed for her rehabilitation. YESSI TURNER MD DR: MARK/rick JOB#: [id number] / [id number]
[2016-12-22 03:15] VITALS: BP 125/75
[2016-12-22] MEDS: oxyCODONE/APAP 5/325 1 TAB TABLET PO PRN ×3 (04:57→18:50)
[2016-12-22] MEDS: CYCLOBENZAPRINE 10 MG TABLET. PO PRN ×2 (04:58→18:52)
[2016-12-22 06:21] LABS: CALCIUM 9.3 mg/dL (8.5-10.1); CREATININE 0.8 mg/dL (0.6-1.0); GFR 75.6
[2016-12-22 06:22] LABS: BASO % 0 % (0-3); EOS % 2 % (0-3); HEMOGLOBIN 12.9 g/dL (12.0-15.5); LYMPH # 1.4 x10^3/uL (1.0-4.8); LYMPH % 14 % (24-48); MEAN CORPUSCULAR HEMOGLOBIN 29 pg (25-35); MEAN CORPUSCULAR HGB CONC 34 g/dL (31-37); MEAN CORPUSCULAR VOLUME 87 fL (79-100); MONO % 9 % (0-9); NEUT % 75 % (31-73); PLATELET COUNT 231 x10^3/uL (140-400); RED BLOOD COUNT 4.39 x10^6/uL (3.50-5.40); RED CELL DISTRIBUTION WIDTH 14.7 % (11.5-14.5); WHITE BLOOD COUNT 9.5 x10^3/uL (4.0-11.0)
[2016-12-22] MEDS: PANTOPRAZOLE 40 MG TABLET.DR. PO SCH (06:41)
[2016-12-22] MEDS: BUDESONIDE 0.5 MG/2 ML NEBU. NEB SCH ×2 (06:56→20:01)
[2016-12-22] MEDS: ALBUTEROL SULFATE 2.5 MG/3 ML NEBU. NEB SCH ×4 (06:56→20:01)
[2016-12-22 07:15] VITALS: BP 127/82
[2016-12-22] MEDS: BISACODYL 5 MG TABLET.DR. PO SCH (08:36)
[2016-12-22] MEDS: MULTIVITAMIN with MINERAL TABLET. PO SCH (08:36)
[2016-12-22] MEDS: SENNOSIDES/DOCUSATE 8.6/50MG TABLET. PO SCH ×2 (08:37→21:38)
[2016-12-22] MEDS: DOCUSATE SODIUM 100 MG CAPSULE. PO SCH ×3 (08:37→21:38)
[2016-12-22] MEDS: CALCIUM ACETATE 667 MG CAPSULE PO SCH ×3 (08:37→18:03)
--- NOTE | 2016-12-22 08:56 | PDOC ---
PROGRESS NOTES Subjective Subjective No new complaints. She continues with back pain and constipation. Objective Objective Vital Signs Date Time Temp Pulse Resp B/P (MAP) Pulse Ox O2 Delivery O2 Flow Rate FiO2 12/22/16 07:15 100.6 87 20 127/82 (97) 97 Room Air 100.6 Physical Exam Physical Exam She is supine in bed and does not seem to be in any acute distress. She had indwelling Flores catheter in place and continues with tenderness to palpation over thoracic and lumbar paraspinal muscles with painfully limited ROM of her spine and she is requiring physical assistance for mobility and self care.She did walk for a few feet with roller walker and TLSO with physical and occupational therapy. Assessment Assessment Problems Medical Problems: (1) Concussion Status: Acute (2) Right rib fracture Status: Acute (3) Spinous process fracture Status: Acute Plan Plan of Care To continue present physical and occupational therapy follow up and to rehab unit when medically stable. Comment Review of Relevant I have reviewed the following items ekta (where applicable) has been applied. Labs Laboratory Tests Test 12/21/16 03:20 12/22/16 05:00 White Blood Count 7.5 x10^3/uL (4.0-11.0) 9.5 x10^3/uL (4.0-11.0) Red Blood Count 4.28 x10^6/uL (3.50-5.40) 4.39 x10^6/uL (3.50-5.40) Hemoglobin 12.5 g/dL (12.0-15.5) 12.9 g/dL (12.0-15.5) Hematocrit 36.8 % (36.0-47.0) 38.0 % (36.0-47.0) Mean Corpuscular Volume 86 fL (79-100) 87 fL (79-100) Mean Corpuscular Hemoglobin 29 pg (25-35) 29 pg (25-35) Mean Corpuscular Hemoglobin Concent 34 g/dL (31-37) 34 g/dL (31-37) Red Cell Distribution Width 14.6 % (11.5-14.5) 14.7 % (11.5-14.5) Platelet Count 193 x10^3/uL (140-400) 231 x10^3/uL (140-400) Neutrophils (%) (Auto) 66 % (31-73) 75 % (31-73) Lymphocytes (%) (Auto) 22 % (24-48) 14 % (24-48) Monocytes (%) (Auto) 9 % (0-9) 9 % (0-9) Eosinophils (%) (Auto) 3 % (0-3) 2 % (0-3) Basophils (%) (Auto) 0 % (0-3) 0 % (0-3) Neutrophils # (Auto) 5.0 x10^3uL (1.8-7.7) 7.1 x10^3uL (1.8-7.7) Lymphocytes # (Auto) 1.7 x10^3/uL (1.0-4.8) 1.4 x10^3/uL (1.0-4.8) Monocytes # (Auto) 0.7 x10^3/uL (0.0-1.1) 0.8 x10^3/uL (0.0-1.1) Eosinophils # (Auto) 0.2 x10^3/uL (0.0-0.7) 0.2 x10^3/uL (0.0-0.7) Basophils # (Auto) 0.0 x10^3/uL (0.0-0.2) 0.0 x10^3/uL (0.0-0.2) Sodium Level 137 mmol/L (136-145) 138 mmol/L (136-145) Potassium Level 4.0 mmol/L (3.5-5.1) 4.0 mmol/L (3.5-5.1) Chloride Level 102 mmol/L (98-107) 100 mmol/L (98-107) Carbon Dioxide Level 26 mmol/L (21-32) 28 mmol/L (21-32) Anion Gap 9 (6-14) 10 (6-14) Blood Urea Nitrogen 6 mg/dL (7-20) 6 mg/dL (7-20) Creatinine 0.8 mg/dL (0.6-1.0) 0.8 mg/dL (0.6-1.0) Estimated GFR (Cockcroft-Gault) 75.6 75.6 Glucose Level 144 mg/dL (70-99) 135 mg/dL (70-99) Calcium Level 8.9 mg/dL (8.5-10.1) 9.3 mg/dL (8.5-10.1) Laboratory Tests Test 12/22/16 05:00 White Blood Count 9.5 x10^3/uL (4.0-11.0) Red Blood Count 4.39 x10^6/uL (3.50-5.40) Hemoglobin 12.9 g/dL (12.0-15.5) Hematocrit 38.0 % (36.0-47.0) Mean Corpuscular Volume 87 fL (79-100) Mean Corpuscular Hemoglobin 29 pg (25-35) Mean Corpuscular Hemoglobin Concent 34 g/dL (31-37) Red Cell Distribution Width 14.7 % (11.5-14.5) Platelet Count 231 x10^3/uL (140-400) Neutrophils (%) (Auto) 75 % (31-73) Lymphocytes (%) (Auto) 14 % (24-48) Monocytes (%) (Auto) 9 % (0-9) Eosinophils (%) (Auto) 2 % (0-3) Basophils (%) (Auto) 0 % (0-3) Neutrophils # (Auto) 7.1 x10^3uL (1.8-7.7) Lymphocytes # (Auto) 1.4 x10^3/uL (1.0-4.8) Monocytes # (Auto) 0.8 x10^3/uL (0.0-1.1) Eosinophils # (Auto) 0.2 x10^3/uL (0.0-0.7) Basophils # (Auto) 0.0 x10^3/uL (0.0-0.2) Sodium Level 138 mmol/L (136-145) Potassium Level 4.0 mmol/L (3.5-5.1) Chloride Level 100 mmol/L (98-107) Carbon Dioxide Level 28 mmol/L (21-32) Anion Gap 10 (6-14) Blood Urea Nitrogen 6 mg/dL (7-20) Creatinine 0.8 mg/dL (0.6-1.0) Estimated GFR (Cockcroft-Gault) 75.6 Glucose Level 135 mg/dL (70-99) Calcium Level 9.3 mg/dL (8.5-10.1) Medications Current Medications Fentanyl Citrate (Fentanyl 2ml Vial) 75 mcg 1X ONCE IV Last administered on 10:20; Start 12/19/16 at 10:15; Stop 12/19/16 at 10:29; Status DC Ondansetron HCl (Zofran) 4 mg 1X ONCE IV Last administered on 12/19/16 10:19 ; Start 12/19/16 at 10:15; Stop 12/19/16 at 10:29; Status DC Iohexol (Omnipaque 300 Mg/ml) 75 ml 1X ONCE IV Last administered on 12/19/16 10:52; Start 12/19/16 at 10:30; Stop 12/19/16 at 10:31; Status DC Morphine Sulfate 4 mg 1X ONCE IV Last administered on 12/19/16 10:45; Start 12/19/16 at 10:45; Stop 12/19/16 at 10:46; Status DC Iohexol (Omnipaque 300 Mg/ml) 75 ml STK-MED ONCE .ROUTE ; Start 12/19/16 at 10: 46; Stop 12/19/16 at 10:47; Status DC Morphine Sulfate 4 mg Q2HR PRN IV pain Last administered on 12/21/16 13:20; Start 12/19/16 at 11:30 Morphine Sulfate 2 mg PRN Q2HR PRN IV PAIN; Start 12/19/16 at 12:45; Stop 12/20 at 12:44; Status DC Calcium Acetate (Phoslo) 667 mg TIDWMEALS PO Last administered on 12/22/16 08: 37; Start 12/19/16 at 17:30 Pantoprazole Sodium (Protonix) 40 mg DAILYAC PO Last administered on 12/22/16 06:41; Start 12/20/16 at 07:30 Non-Formulary Medication 2 puff PRN Q4-6HRS IH ; Start 12/19/16 at 17:15; Status UNV Non-Formulary Medication 1 each DAILY INH ; Start 12/20/16 at 09:00; Status UNV Multivitamins (Thera M Plus) 1 tab DAILY PO ; Start 12/20/16 at 09:00; Stop at 09:00; Status DC Cyclobenzaprine HCl (Flexeril) 10 mg PRN Q8HRS PRN PO MUSCLE SPASMS Last administered on 12/22/16 04:58; Start 12/19/16 at 17:15 Albuterol Sulfate (Ventolin Neb Soln) 2.5 mg RTQID NEB Last administered on 06:56; Start 12/19/16 at 20:00 Albuterol Sulfate (Ventolin Neb Soln) 2.5 mg PRN Q6HRS PRN NEB SHORTNESS OF BREATH; Start 12/19/16 at 17:30 Budesonide (Pulmicort) 0.5 mg RTBID NEB Last administered on 12/22/16 06:56; Start 12/19/16 at 20:00 Multivitamins (Thera M Plus) 1 tab DAILY PO Last administered on 12/22/16 08: 36; Start 12/20/16 at 09:00 Acetaminophen/ Hydrocodone Bitart (Lortab 5/325) 2 tab PRN Q4HRS PRN PO PAIN Last administered on 12/21/16 04:25; Start 12/20/16 at 15:00; Stop 12/21/16 at 09:08; Status DC Acetaminophen/ Hydrocodone Bitart (Lortab 5/325) 1 tab PRN Q4HRS PRN PO PAIN; Start 12/20/16 at 15:00 Sennosides (Senna) 17.2 mg PRN DAILY PRN PO CONSTIPATION Last administered on 15:20; Start 12/20/16 at 15:00 Docusate Sodium (Colace) 100 mg DAILY PO Last administered on 12/21/16 08:53; Start 12/20/16 at 15:00 Oxycodone/ Acetaminophen (Percocet 5/325) 1 tab PRN Q4HRS PRN PO PAIN Last administered on 12/22/16 04:57; Start 12/20/16 at 15:30 Senna/Docusate Sodium (Senna Plus) 1 tab BID PO Last administered on 12/22/16 08:37; Start 12/21/16 at 10:00 Docusate Sodium (Colace) 100 mg BID PO Last administered on 12/22/16 08:37; Start 12/21/16 at 10:00 Magnesium Hydroxide (Milk Of Magnesia) 2,400 mg PRN Q12HR PRN PO CONSTIPATION; Start 12/21/16 at 09:15 Bisacodyl (Dulcolax Supp) 10 mg PRN DAILY PRN [place] CONSTIPATION; Start 12/21/16 at 09:15 Bisacodyl (Dulcolax Tab) 10 mg DAILY PO Last administered on 12/22/16 08:36; Start 12/21/16 at 11:00 Acetaminophen (Tylenol) 650 mg PRN Q6HRS PRN PO FEVER Last administered on 12/22 08:37; Start 12/21/16 at 13:15 Ondansetron HCl (Zofran) 4 mg PRN Q6HRS PRN IV NAUSEA/VOMITING; Start 12/21/16 at 13:15 Morphine Sulfate 2 mg PRN Q2HR PRN IV PAIN; Start 12/21/16 at 13:15 Tramadol HCl (Ultram) 50 mg PRN Q6HRS PRN PO PAIN mild to MOD; Start 12/21/16 at 13:15 Hydralazine HCl (Apresoline) 10 mg PRN Q4HRS PRN IVP ELEVATED BP, SEE COMMENTS ; Start 12/21/16 at 13:15 Docusate Sodium (Colace) 100 mg PRN DAILY PRN PO CONSTIPATION; Start 12/21/16 at 13:15 Enoxaparin Sodium (Lovenox 40mg Syringe) 40 mg Q24H SQ Last administered on 15:08; Start 12/21/16 at 15:00 Active Scripts Active Reported Breo Ellipta 100-25 Mcg INH (Fluticasone/Vilanterol) 1 Each Blst.w.dev 1 Each INH DAILY Protonix (Pantoprazole Sodium) 40 Mg Tablet.dr 1 Tab PO DAILY Proair Hfa Inhaler (Albuterol Sulfate) 8.5 Gm Hfa.aer.ad 2 Puff IH PRN Q4-6HRS Phoslo (Calcium Acetate) 667 Mg Capsule 667 Mg PO TIDWMEALS Daily Value (Multivitamin) 1 Each Tablet 1 Each PO DAILY Bupropion Hcl Sr (Bupropion Hcl) 150 Mg Tablet.er 40 Tab PO BID Vitals/I & O Vital Sign - Last 24 Hours 12/21/16 12/21/16 12/21/16 12/21/16 08:53 10:37 10:53 11:25 Temp 98.8 98.8 Pulse 90 Resp 18 B/P (MAP) 150/96 (114) Pulse Ox 93 94 O2 Delivery Room Air Room Air Room Air Room Air 12/21/16 12/21/16 12/21/16 12/21/16 13:20 14:51 15:01 15:43 Temp 101.1 101.1 Pulse 101 Resp 18 B/P (MAP) 150/94 (112) Pulse Ox 95 O2 Delivery Room Air Room Air Room Air Room Air 12/21/16 12/21/16 12/21/16 12/21/16 16:05 19:10 20:01 21:37 Temp 99.3 99.3 Pulse 96 Resp 20 18 16 B/P (MAP) 129/86 (100) Pulse Ox 93 93 O2 Delivery Room Air Room Air Room Air 12/21/16 12/22/16 12/22/16 12/22/16 23:10 03:15 04:57 05:57 Temp 99.2 98.8 99.2 98.8 Pulse 94 84 Resp 18 18 16 16 B/P (MAP) 142/92 (109) 125/75 (92) Pulse Ox 94 96 96 96 O2 Delivery Room Air Room Air Room Air Room Air 12/22/16 12/22/16 12/22/16 06:57 07:00 07:15 Temp 100.6 100.6 Pulse 87 Resp 20 B/P (MAP) 127/82 (97) Pulse Ox 97 97 O2 Delivery Room Air Room Air Room Air YESSI TURNER MD Dec 22, 2016 08:56
[2016-12-22] MEDS: MAGNESIUM HYDROXIDE 2,400 MG/30 ML ORAL.SUSP. PO SCH ×2 (11:09→21:38)
[2016-12-22] MEDS: POLYETHYLENE GLYCOL 3350 17 GM PACKET. PO SCH (11:10)
[2016-12-22 11:15] VITALS: BP 142/93
--- NOTE | 2016-12-22 12:12 | PDOC ---
PROGRESS NOTES Chief Complaint Chief Complaint Traumatic fall with L2, L3 compressive fx, and rib fx intractable lumbago with fall Depression Probable ETOH abuse h/o Right breast infection Cholecystectomy Tonsillectomy constipation h/o COPD CAMMY, vasomotor plan: fu with Neurosx, no intervention, has back brace, recommend IR consult, done, no sx recommended too fU WITH dr. taveras pain control , better with percocet, cont PTOT SW for possible rehab increase stool softner dvt ppx check vitD remove méndez, if cont fever, will do panculture hope dc tmr home or rehab History of Present Illness History of Present Illness ROS: no chills, sob, chest pain , T 100.6 51 yo F fell off a horse and was trampled. Found to have fx of the following: R 7th rip, spinous processes (T7, T8), endplates (L2, L3). Spoke with pt and her family this AM. Bruises in the shape of hoof prints are now visible on the back and buttocks. cont having severe lumbargo, can get out of bed to commode with help and brace constipation still on méndez Vitals Vitals Vital Signs Date Time Temp Pulse Resp B/P (MAP) Pulse Ox O2 Delivery O2 Flow Rate FiO2 12/22/16 11:34 Room Air 12/22/16 11:15 97.4 90 18 142/93 (109) 97 97.4 Physical Exam General: Alert, Oriented X3, Cooperative, No acute distress Heart: Regular rate Lungs: Clear Abdomen: Soft, Other (mild tenderness to lower abdomen ) Extremities: No clubbing, No cyanosis, No edema Skin: No rashes, No breakdown Labs LABS Laboratory Tests Test 12/22/16 05:00 White Blood Count 9.5 x10^3/uL (4.0-11.0) Red Blood Count 4.39 x10^6/uL (3.50-5.40) Hemoglobin 12.9 g/dL (12.0-15.5) Hematocrit 38.0 % (36.0-47.0) Mean Corpuscular Volume 87 fL (79-100) Mean Corpuscular Hemoglobin 29 pg (25-35) Mean Corpuscular Hemoglobin Concent 34 g/dL (31-37) Red Cell Distribution Width 14.7 % (11.5-14.5) Platelet Count 231 x10^3/uL (140-400) Neutrophils (%) (Auto) 75 % (31-73) Lymphocytes (%) (Auto) 14 % (24-48) Monocytes (%) (Auto) 9 % (0-9) Eosinophils (%) (Auto) 2 % (0-3) Basophils (%) (Auto) 0 % (0-3) Neutrophils # (Auto) 7.1 x10^3uL (1.8-7.7) Lymphocytes # (Auto) 1.4 x10^3/uL (1.0-4.8) Monocytes # (Auto) 0.8 x10^3/uL (0.0-1.1) Eosinophils # (Auto) 0.2 x10^3/uL (0.0-0.7) Basophils # (Auto) 0.0 x10^3/uL (0.0-0.2) Sodium Level 138 mmol/L (136-145) Potassium Level 4.0 mmol/L (3.5-5.1) Chloride Level 100 mmol/L (98-107) Carbon Dioxide Level 28 mmol/L (21-32) Anion Gap 10 (6-14) Blood Urea Nitrogen 6 mg/dL (7-20) Creatinine 0.8 mg/dL (0.6-1.0) Estimated GFR (Cockcroft-Gault) 75.6 Glucose Level 135 mg/dL (70-99) Calcium Level 9.3 mg/dL (8.5-10.1) Assessment and Plan Assessmemt and Plan Problems Medical Problems: (1) Concussion Status: Acute (2) Right rib fracture Status: Acute (3) Spinous process fracture Status: Acute Problems: Comment Review of Relevant I have reviewed the following items ekta (where applicable) has been applied. Labs Laboratory Tests Test 12/21/16 03:20 12/22/16 05:00 White Blood Count 7.5 x10^3/uL (4.0-11.0) 9.5 x10^3/uL (4.0-11.0) Red Blood Count 4.28 x10^6/uL (3.50-5.40) 4.39 x10^6/uL (3.50-5.40) Hemoglobin 12.5 g/dL (12.0-15.5) 12.9 g/dL (12.0-15.5) Hematocrit 36.8 % (36.0-47.0) 38.0 % (36.0-47.0) Mean Corpuscular Volume 86 fL (79-100) 87 fL (79-100) Mean Corpuscular Hemoglobin 29 pg (25-35) 29 pg (25-35) Mean Corpuscular Hemoglobin Concent 34 g/dL (31-37) 34 g/dL (31-37) Red Cell Distribution Width 14.6 % (11.5-14.5) 14.7 % (11.5-14.5) Platelet Count 193 x10^3/uL (140-400) 231 x10^3/uL (140-400) Neutrophils (%) (Auto) 66 % (31-73) 75 % (31-73) Lymphocytes (%) (Auto) 22 % (24-48) 14 % (24-48) Monocytes (%) (Auto) 9 % (0-9) 9 % (0-9) Eosinophils (%) (Auto) 3 % (0-3) 2 % (0-3) Basophils (%) (Auto) 0 % (0-3) 0 % (0-3) Neutrophils # (Auto) 5.0 x10^3uL (1.8-7.7) 7.1 x10^3uL (1.8-7.7) Lymphocytes # (Auto) 1.7 x10^3/uL (1.0-4.8) 1.4 x10^3/uL (1.0-4.8) Monocytes # (Auto) 0.7 x10^3/uL (0.0-1.1) 0.8 x10^3/uL (0.0-1.1) Eosinophils # (Auto) 0.2 x10^3/uL (0.0-0.7) 0.2 x10^3/uL (0.0-0.7) Basophils # (Auto) 0.0 x10^3/uL (0.0-0.2) 0.0 x10^3/uL (0.0-0.2) Sodium Level 137 mmol/L (136-145) 138 mmol/L (136-145) Potassium Level 4.0 mmol/L (3.5-5.1) 4.0 mmol/L (3.5-5.1) Chloride Level 102 mmol/L (98-107) 100 mmol/L (98-107) Carbon Dioxide Level 26 mmol/L (21-32) 28 mmol/L (21-32) Anion Gap 9 (6-14) 10 (6-14) Blood Urea Nitrogen 6 mg/dL (7-20) 6 mg/dL (7-20) Creatinine 0.8 mg/dL (0.6-1.0) 0.8 mg/dL (0.6-1.0) Estimated GFR (Cockcroft-Gault) 75.6 75.6 Glucose Level 144 mg/dL (70-99) 135 mg/dL (70-99) Calcium Level 8.9 mg/dL (8.5-10.1) 9.3 mg/dL (8.5-10.1) Laboratory Tests Test 12/22/16 05:00 White Blood Count 9.5 x10^3/uL (4.0-11.0) Red Blood Count 4.39 x10^6/uL (3.50-5.40) Hemoglobin 12.9 g/dL (12.0-15.5) Hematocrit 38.0 % (36.0-47.0) Mean Corpuscular Volume 87 fL (79-100) Mean Corpuscular Hemoglobin 29 pg (25-35) Mean Corpuscular Hemoglobin Concent 34 g/dL (31-37) Red Cell Distribution Width 14.7 % (11.5-14.5) Platelet Count 231 x10^3/uL (140-400) Neutrophils (%) (Auto) 75 % (31-73) Lymphocytes (%) (Auto) 14 % (24-48) Monocytes (%) (Auto) 9 % (0-9) Eosinophils (%) (Auto) 2 % (0-3) Basophils (%) (Auto) 0 % (0-3) Neutrophils # (Auto) 7.1 x10^3uL (1.8-7.7) Lymphocytes # (Auto) 1.4 x10^3/uL (1.0-4.8) Monocytes # (Auto) 0.8 x10^3/uL (0.0-1.1) Eosinophils # (Auto) 0.2 x10^3/uL (0.0-0.7) Basophils # (Auto) 0.0 x10^3/uL (0.0-0.2) Sodium Level 138 mmol/L (136-145) Potassium Level 4.0 mmol/L (3.5-5.1) Chloride Level 100 mmol/L (98-107) Carbon Dioxide Level 28 mmol/L (21-32) Anion Gap 10 (6-14) Blood Urea Nitrogen 6 mg/dL (7-20) Creatinine 0.8 mg/dL (0.6-1.0) Estimated GFR (Cockcroft-Gault) 75.6 Glucose Level 135 mg/dL (70-99) Calcium Level 9.3 mg/dL (8.5-10.1) Medications Current Medications Fentanyl Citrate (Fentanyl 2ml Vial) 75 mcg 1X ONCE IV Last administered on 10:20; Start 12/19/16 at 10:15; Stop 12/19/16 at 10:29; Status DC Ondansetron HCl (Zofran) 4 mg 1X ONCE IV Last administered on 12/19/16 10:19 ; Start 12/19/16 at 10:15; Stop 12/19/16 at 10:29; Status DC Iohexol (Omnipaque 300 Mg/ml) 75 ml 1X ONCE IV Last administered on 12/19/16 10:52; Start 12/19/16 at 10:30; Stop 12/19/16 at 10:31; Status DC Morphine Sulfate 4 mg 1X ONCE IV Last administered on 12/19/16 10:45; Start 12/19/16 at 10:45; Stop 12/19/16 at 10:46; Status DC Iohexol (Omnipaque 300 Mg/ml) 75 ml STK-MED ONCE .ROUTE ; Start 12/19/16 at 10: 46; Stop 12/19/16 at 10:47; Status DC Morphine Sulfate 4 mg Q2HR PRN IV pain Last administered on 12/21/16t 13:20; Start 12/19/16 at 11:30 Morphine Sulfate 2 mg PRN Q2HR PRN IV PAIN; Start 12/19/16 at 12:45; Stop 12/20 at 12:44; Status DC Calcium Acetate (Phoslo) 667 mg TIDWMEALS PO Last administered on 12/22/16 08: 37; Start 12/19/16 at 17:30 Pantoprazole Sodium (Protonix) 40 mg DAILYAC PO Last administered on 12/22/16 06:41; Start 12/20/16 at 07:30 Non-Formulary Medication 2 puff PRN Q4-6HRS IH ; Start 12/19/16 at 17:15; Status UNV Non-Formulary Medication 1 each DAILY INH ; Start 12/20/16 at 09:00; Status UNV Multivitamins (Thera M Plus) 1 tab DAILY PO ; Start 12/20/16 at 09:00; Stop at 09:00; Status DC Cyclobenzaprine HCl (Flexeril) 10 mg PRN Q8HRS PRN PO MUSCLE SPASMS Last administered on 12/22/16 04:58; Start 12/19/16 at 17:15 Albuterol Sulfate (Ventolin Neb Soln) 2.5 mg RTQID NEB Last administered on 11:30; Start 12/19/16 at 20:00 Albuterol Sulfate (Ventolin Neb Soln) 2.5 mg PRN Q6HRS PRN NEB SHORTNESS OF BREATH; Start 12/19/16 at 17:30 Budesonide (Pulmicort) 0.5 mg RTBID NEB Last administered on 12/22/16 06:56; Start 12/19/16 at 20:00 Multivitamins (Thera M Plus) 1 tab DAILY PO Last administered on 12/22/16 08: 36; Start 12/20/16 at 09:00 Acetaminophen/ Hydrocodone Bitart (Lortab 5/325) 2 tab PRN Q4HRS PRN PO PAIN Last administered on 12/21/16 04:25; Start 12/20/16 at 15:00; Stop 12/21/16 at 09:08; Status DC Acetaminophen/ Hydrocodone Bitart (Lortab 5/325) 1 tab PRN Q4HRS PRN PO PAIN; Start 12/20/16 at 15:00 Sennosides (Senna) 17.2 mg PRN DAILY PRN PO CONSTIPATION Last administered on 15:20; Start 12/20/16 at 15:00 Docusate Sodium (Colace) 100 mg DAILY PO Last administered on 12/21/16 08:53; Start 12/20/16 at 15:00; Stop 12/22/16 at 09:53; Status DC Oxycodone/ Acetaminophen (Percocet 5/325) 1 tab PRN Q4HRS PRN PO PAIN Last administered on 12/22/16 11:13; Start 12/20/16 at 15:30 Senna/Docusate Sodium (Senna Plus) 1 tab BID PO Last administered on 12/22/16 08:37; Start 12/21/16 at 10:00 Docusate Sodium (Colace) 100 mg BID PO Last administered on 12/22/16 08:37; Start 12/21/16 at 10:00 Magnesium Hydroxide (Milk Of Magnesia) 2,400 mg PRN Q12HR PRN PO CONSTIPATION; Start 12/21/16 at 09:15; Stop 12/22/16 at 09:53; Status DC Bisacodyl (Dulcolax Supp) 10 mg PRN DAILY PRN [place] CONSTIPATION; Start 12/21/16 at 09:15 Bisacodyl (Dulcolax Tab) 10 mg DAILY PO Last administered on 12/22/16 08:36; Start 12/21/16 at 11:00 Acetaminophen (Tylenol) 650 mg PRN Q6HRS PRN PO FEVER Last administered on 12/22 08:37; Start 12/21/16 at 13:15 Ondansetron HCl (Zofran) 4 mg PRN Q6HRS PRN IV NAUSEA/VOMITING; Start 12/21/16 at 13:15 Morphine Sulfate 2 mg PRN Q2HR PRN IV PAIN; Start 12/21/16 at 13:15 Tramadol HCl (Ultram) 50 mg PRN Q6HRS PRN PO PAIN mild to MOD; Start 12/21/16 at 13:15 Hydralazine HCl (Apresoline) 10 mg PRN Q4HRS PRN IVP ELEVATED BP, SEE COMMENTS ; Start 12/21/16 at 13:15 Docusate Sodium (Colace) 100 mg PRN DAILY PRN PO CONSTIPATION; Start 12/21/16 at 13:15 Enoxaparin Sodium (Lovenox 40mg Syringe) 40 mg Q24H SQ Last administered on 15:08; Start 12/21/16 at 15:00 Magnesium Hydroxide (Milk Of Magnesia) 2,400 mg BID PO Last administered on 11:09; Start 12/22/16 at 10:30 Polyethylene Glycol (miraLAX PACKET) 17 gm DAILY PO Last administered on 11:10; Start 12/22/16 at 10:30 Active Scripts Active Reported Breo Ellipta 100-25 Mcg INH (Fluticasone/Vilanterol) 1 Each Blst.w.dev 1 Each INH DAILY Protonix (Pantoprazole Sodium) 40 Mg Tablet.dr 1 Tab PO DAILY Proair Hfa Inhaler (Albuterol Sulfate) 8.5 Gm Hfa.aer.ad 2 Puff IH PRN Q4-6HRS Phoslo (Calcium Acetate) 667 Mg Capsule 667 Mg PO TIDWMEALS Daily Value (Multivitamin) 1 Each Tablet 1 Each PO DAILY Bupropion Hcl Sr (Bupropion Hcl) 150 Mg Tablet.er 40 Tab PO BID Vitals/I & O Vital Sign - Last 24 Hours 12/21/16 12/21/16 12/21/16 12/21/16 13:20 14:51 15:01 15:43 Temp 101.1 101.1 Pulse 101 Resp 18 B/P (MAP) 150/94 (112) Pulse Ox 95 O2 Delivery Room Air Room Air Room Air Room Air 12/21/16 12/21/16 12/21/16 12/21/16 16:05 19:10 20:01 21:37 Temp 99.3 99.3 Pulse 96 Resp 20 18 16 B/P (MAP) 129/86 (100) Pulse Ox 93 93 O2 Delivery Room Air Room Air Room Air 12/21/16 12/22/16 12/22/16 12/22/16 23:10 03:15 04:57 05:57 Temp 99.2 98.8 99.2 98.8 Pulse 94 84 Resp 18 18 16 16 B/P (MAP) 142/92 (109) 125/75 (92) Pulse Ox 94 96 96 96 O2 Delivery Room Air Room Air Room Air Room Air 9/19/17 9/19/17 9/19/17 9/19/17 06:57 07:00 07:15 11:13 Temp 100.6 100.6 Pulse 87 Resp 20 B/P (MAP) 127/82 (97) Pulse Ox 97 97 O2 Delivery Room Air Room Air Room Air Room Air 12/22/16 12/22/16 11:15 11:34 Temp 97.4 97.4 Pulse 90 Resp 18 B/P (MAP) 142/93 (109) Pulse Ox 97 O2 Delivery Room Air Room Air Intake and Output 12/22/16 12/22/16 12/23/16 15:00 23:00 07:00 Output Total 500 ml Balance -500 ml EDIE CALLOWAY MD Dec 22, 2016 12:12
--- NOTE | 2016-12-22 13:05 | PDOC ---
SURGICAL PROGRESS NOTE Subjective Pt talking with case management no surgical recommendations will sign off, but please call for questions. Vital Signs Vital Signs Date Time Temp Pulse Resp B/P (MAP) Pulse Ox O2 Delivery O2 Flow Rate FiO2 12/22/16 12:14 Room Air 12/22/16 11:15 97.4 90 18 142/93 (109) 97 97.4 I&O Intake and Output 12/23/16 07:00 Output Total 500 ml Balance -500 ml Output Urine Total 500 ml Labs Laboratory Tests Test 12/21/16 03:20 12/22/16 05:00 White Blood Count 7.5 x10^3/uL (4.0-11.0) 9.5 x10^3/uL (4.0-11.0) Red Blood Count 4.28 x10^6/uL (3.50-5.40) 4.39 x10^6/uL (3.50-5.40) Hemoglobin 12.5 g/dL (12.0-15.5) 12.9 g/dL (12.0-15.5) Hematocrit 36.8 % (36.0-47.0) 38.0 % (36.0-47.0) Mean Corpuscular Volume 86 fL (79-100) 87 fL (79-100) Mean Corpuscular Hemoglobin 29 pg (25-35) 29 pg (25-35) Mean Corpuscular Hemoglobin Concent 34 g/dL (31-37) 34 g/dL (31-37) Red Cell Distribution Width 14.6 % (11.5-14.5) 14.7 % (11.5-14.5) Platelet Count 193 x10^3/uL (140-400) 231 x10^3/uL (140-400) Neutrophils (%) (Auto) 66 % (31-73) 75 % (31-73) Lymphocytes (%) (Auto) 22 % (24-48) 14 % (24-48) Monocytes (%) (Auto) 9 % (0-9) 9 % (0-9) Eosinophils (%) (Auto) 3 % (0-3) 2 % (0-3) Basophils (%) (Auto) 0 % (0-3) 0 % (0-3) Neutrophils # (Auto) 5.0 x10^3uL (1.8-7.7) 7.1 x10^3uL (1.8-7.7) Lymphocytes # (Auto) 1.7 x10^3/uL (1.0-4.8) 1.4 x10^3/uL (1.0-4.8) Monocytes # (Auto) 0.7 x10^3/uL (0.0-1.1) 0.8 x10^3/uL (0.0-1.1) Eosinophils # (Auto) 0.2 x10^3/uL (0.0-0.7) 0.2 x10^3/uL (0.0-0.7) Basophils # (Auto) 0.0 x10^3/uL (0.0-0.2) 0.0 x10^3/uL (0.0-0.2) Sodium Level 137 mmol/L (136-145) 138 mmol/L (136-145) Potassium Level 4.0 mmol/L (3.5-5.1) 4.0 mmol/L (3.5-5.1) Chloride Level 102 mmol/L (98-107) 100 mmol/L (98-107) Carbon Dioxide Level 26 mmol/L (21-32) 28 mmol/L (21-32) Anion Gap 9 (6-14) 10 (6-14) Blood Urea Nitrogen 6 mg/dL (7-20) 6 mg/dL (7-20) Creatinine 0.8 mg/dL (0.6-1.0) 0.8 mg/dL (0.6-1.0) Estimated GFR (Cockcroft-Gault) 75.6 75.6 Glucose Level 144 mg/dL (70-99) 135 mg/dL (70-99) Calcium Level 8.9 mg/dL (8.5-10.1) 9.3 mg/dL (8.5-10.1) Laboratory Tests Test 12/22/16 05:00 White Blood Count 9.5 x10^3/uL (4.0-11.0) Red Blood Count 4.39 x10^6/uL (3.50-5.40) Hemoglobin 12.9 g/dL (12.0-15.5) Hematocrit 38.0 % (36.0-47.0) Mean Corpuscular Volume 87 fL (79-100) Mean Corpuscular Hemoglobin 29 pg (25-35) Mean Corpuscular Hemoglobin Concent 34 g/dL (31-37) Red Cell Distribution Width 14.7 % (11.5-14.5) Platelet Count 231 x10^3/uL (140-400) Neutrophils (%) (Auto) 75 % (31-73) Lymphocytes (%) (Auto) 14 % (24-48) Monocytes (%) (Auto) 9 % (0-9) Eosinophils (%) (Auto) 2 % (0-3) Basophils (%) (Auto) 0 % (0-3) Neutrophils # (Auto) 7.1 x10^3uL (1.8-7.7) Lymphocytes # (Auto) 1.4 x10^3/uL (1.0-4.8) Monocytes # (Auto) 0.8 x10^3/uL (0.0-1.1) Eosinophils # (Auto) 0.2 x10^3/uL (0.0-0.7) Basophils # (Auto) 0.0 x10^3/uL (0.0-0.2) Sodium Level 138 mmol/L (136-145) Potassium Level 4.0 mmol/L (3.5-5.1) Chloride Level 100 mmol/L (98-107) Carbon Dioxide Level 28 mmol/L (21-32) Anion Gap 10 (6-14) Blood Urea Nitrogen 6 mg/dL (7-20) Creatinine 0.8 mg/dL (0.6-1.0) Estimated GFR (Cockcroft-Gault) 75.6 Glucose Level 135 mg/dL (70-99) Calcium Level 9.3 mg/dL (8.5-10.1) Problem List Problems Medical Problems: (1) Concussion Status: Acute (2) Right rib fracture Status: Acute (3) Spinous process fracture Status: Acute Problems: LUIS ENRIQUE MESSINA MD Dec 22, 2016 13:05
--- NOTE | 2016-12-22 13:29 | PDOC ---
SUBJECTIVE Subjective Reports back pain improved today. Sitting upright in chair. Denies acute changes otherwise. ROS: no numbness/paresthesias, no bowel/bladder changes, no focal weakness OBJECTIVE Vital Signs Vital Signs Date Time Temp Pulse Resp B/P (MAP) Pulse Ox O2 Delivery O2 Flow Rate FiO2 12/22/16 12:14 Room Air 12/22/16 11:34 Room Air 12/22/16 11:15 97.4 90 18 142/93 (109) 97 Room Air 97.4 12/22/16 11:13 Room Air 12/22/16 07:15 100.6 87 20 127/82 (97) 97 Room Air 100.6 12/22/16 07:00 Room Air 12/22/16 06:57 97 Room Air 12/22/16 05:57 16 96 12/22/16 04:57 16 96 Room Air 12/22/16 03:15 98.8 84 18 125/75 (92) 96 Room Air 98.8 12/21/16 23:10 99.2 94 18 142/92 (109) 94 Room Air 99.2 12/21/16 21:37 16 93 Room Air 12/21/16 20:01 Room Air 12/21/16 19:10 99.3 96 18 129/86 (100) 93 Room Air 99.3 12/21/16 16:05 20 12/21/16 15:43 Room Air 12/21/16 15:01 101.1 101 18 150/94 (112) 95 Room Air 101.1 12/21/16 14:51 Room Air I & O Intake and Output 12/23/16 07:00 Output Total 500 ml Balance -500 ml Output Urine Total 500 ml PHYSICAL EXAM Physical Exam AAOx4, NAD, sitting in chair with properly fitted brace in place, SWEET 5/5, sensation intact LT ASSESSMENT/PLAN Assessment/Plan 51 F with thoracic spinous fractures and lumbar compression fractures -clinically appears to be doing better today/appears more comfortable -neurologically stable/intact -for lumbar fractures, continue to wear TLSO at all times when OOB -vertebral augmentation not recommended at this time per IR -okay to d/c to appropriate venue from NS standpoint when otherwise meets criteria/clear by all other services -recommend upright lumbar plain films with brace on in two weeks with outpatient follow-up [phone] -d/w patient and family, all questions answered, all in agreement Problems: COMMENT Lab Laboratory Tests Test 12/22/16 05:00 White Blood Count 9.5 x10^3/uL (4.0-11.0) Red Blood Count 4.39 x10^6/uL (3.50-5.40) Hemoglobin 12.9 g/dL (12.0-15.5) Hematocrit 38.0 % (36.0-47.0) Mean Corpuscular Volume 87 fL (79-100) Mean Corpuscular Hemoglobin 29 pg (25-35) Mean Corpuscular Hemoglobin Concent 34 g/dL (31-37) Red Cell Distribution Width 14.7 % (11.5-14.5) Platelet Count 231 x10^3/uL (140-400) Neutrophils (%) (Auto) 75 % (31-73) Lymphocytes (%) (Auto) 14 % (24-48) Monocytes (%) (Auto) 9 % (0-9) Eosinophils (%) (Auto) 2 % (0-3) Basophils (%) (Auto) 0 % (0-3) Neutrophils # (Auto) 7.1 x10^3uL (1.8-7.7) Lymphocytes # (Auto) 1.4 x10^3/uL (1.0-4.8) Monocytes # (Auto) 0.8 x10^3/uL (0.0-1.1) Eosinophils # (Auto) 0.2 x10^3/uL (0.0-0.7) Basophils # (Auto) 0.0 x10^3/uL (0.0-0.2) Sodium Level 138 mmol/L (136-145) Potassium Level 4.0 mmol/L (3.5-5.1) Chloride Level 100 mmol/L (98-107) Carbon Dioxide Level 28 mmol/L (21-32) Anion Gap 10 (6-14) Blood Urea Nitrogen 6 mg/dL (7-20) Creatinine 0.8 mg/dL (0.6-1.0) Estimated GFR (Cockcroft-Gault) 75.6 Glucose Level 135 mg/dL (70-99) Calcium Level 9.3 mg/dL (8.5-10.1) RADHA KAYE MD Dec 22, 2016 13:29
[2016-12-22 15:15] VITALS: BP 121/82
[2016-12-22] MEDS: ENOXAPARIN 40 MG/0.4 ML SYRINGE. SQ SCH (15:32)
[2016-12-22 19:00] VITALS: BP 146/96
[2016-12-22 23:00] VITALS: BP 147/92
[2016-12-23] MEDS: oxyCODONE/APAP 5/325 1 TAB TABLET PO PRN ×3 (01:03→13:06)
[2016-12-23 03:00] VITALS: BP 146/82
[2016-12-23] MEDS: CYCLOBENZAPRINE 10 MG TABLET. PO PRN ×2 (05:43→13:06)
[2016-12-23] MEDS: PANTOPRAZOLE 40 MG TABLET.DR. PO SCH (05:43)
[2016-12-23 06:32] LABS: BASO # 0.1 x10^3/uL (0.0-0.2); BASO % 1 % (0-3); EOS % 4 % (0-3); HEMATOCRIT 37.1 % (36.0-47.0); HEMOGLOBIN 12.5 g/dL (12.0-15.5); LYMPH # 1.9 x10^3/uL (1.0-4.8); LYMPH % 27 % (24-48); MEAN CORPUSCULAR HEMOGLOBIN 29 pg (25-35); MEAN CORPUSCULAR HGB CONC 34 g/dL (31-37); MEAN CORPUSCULAR VOLUME 87 fL (79-100); MONO % 10 % (0-9); NEUT % 58 % (31-73); PLATELET COUNT 240 x10^3/uL (140-400); RED BLOOD COUNT 4.29 x10^6/uL (3.50-5.40); RED CELL DISTRIBUTION WIDTH 14.4 % (11.5-14.5); WHITE BLOOD COUNT 7.2 x10^3/uL (4.0-11.0)
[2016-12-23 06:48] LABS: CALCIUM 8.8 mg/dL (8.5-10.1); CREATININE 0.8 mg/dL (0.6-1.0); GFR 75.6; POTASSIUM 4.3 mmol/L (3.5-5.1)
[2016-12-23] MEDS: BUDESONIDE 0.5 MG/2 ML NEBU. NEB SCH (06:51)
[2016-12-23] MEDS: ALBUTEROL SULFATE 2.5 MG/3 ML NEBU. NEB SCH ×2 (06:51→10:41)
[2016-12-23 07:00] VITALS: BP 107/67
[2016-12-23] MEDS: SENNOSIDES/DOCUSATE 8.6/50MG TABLET. PO SCH (09:20)
[2016-12-23] MEDS: MULTIVITAMIN with MINERAL TABLET. PO SCH (09:20)
[2016-12-23] MEDS: CALCIUM ACETATE 667 MG CAPSULE PO SCH ×2 (09:20→13:06)
[2016-12-23] MEDS: MAGNESIUM HYDROXIDE 2,400 MG/30 ML ORAL.SUSP. PO SCH (09:20)
[2016-12-23] MEDS: DOCUSATE SODIUM 100 MG CAPSULE. PO SCH (09:20)
[2016-12-23] MEDS: BISACODYL 5 MG TABLET.DR. PO SCH (09:20)
[2016-12-23] MEDS: POLYETHYLENE GLYCOL 3350 17 GM PACKET. PO SCH (09:20)
[2016-12-23] MEDS ORDERED: OXYC1TAB7 PO (09:34)
[2016-12-23] MEDS ORDERED: DOCU-109 PO (09:34)
[2016-12-23] MEDS ORDERED: SENN-22 PO (09:34)
[2016-12-23] MEDS ORDERED: CYCL10TA2 PO (09:35)
--- NOTE | 2016-12-23 09:49 | PDOC ---
PROGRESS NOTES Subjective Subjective No new complaints. Objective Objective Vital Signs Date Time Temp Pulse Resp B/P (MAP) Pulse Ox O2 Delivery O2 Flow Rate FiO2 12/23/16 07:13 98 Room Air 12/23/16 07:00 97.9 80 18 107/67 (80) 97.9 Physical Exam Physical Exam She is supine in bed and continues with tenderness to palpation over thoracic and lumbar area with painfully limited ROM and she did walk with physical therapy for 20' yesterday with roller walker anf TLSO. She remains constipated. Assessment Assessment Problems Medical Problems: (1) Concussion Status: Acute (2) Right rib fracture Status: Acute (3) Spinous process fracture Status: Acute Plan Plan [facility] Care To [facility] when medically stable. Comment Review of Relevant I have reviewed the following items ekta (where applicable) has been applied. Labs Laboratory Tests Test 12/22/16 05:00 12/23/16 05:40 White Blood Count 9.5 x10^3/uL (4.0-11.0) 7.2 x10^3/uL (4.0-11.0) Red Blood Count 4.39 x10^6/uL (3.50-5.40) 4.29 x10^6/uL (3.50-5.40) Hemoglobin 12.9 g/dL (12.0-15.5) 12.5 g/dL (12.0-15.5) Hematocrit 38.0 % (36.0-47.0) 37.1 % (36.0-47.0) Mean Corpuscular Volume 87 fL (79-100) 87 fL (79-100) Mean Corpuscular Hemoglobin 29 pg (25-35) 29 pg (25-35) Mean Corpuscular Hemoglobin Concent 34 g/dL (31-37) 34 g/dL (31-37) Red Cell Distribution Width 14.7 % (11.5-14.5) 14.4 % (11.5-14.5) Platelet Count 231 x10^3/uL (140-400) 240 x10^3/uL (140-400) Neutrophils (%) (Auto) 75 % (31-73) 58 % (31-73) Lymphocytes (%) (Auto) 14 % (24-48) 27 % (24-48) Monocytes (%) (Auto) 9 % (0-9) 10 % (0-9) Eosinophils (%) (Auto) 2 % (0-3) 4 % (0-3) Basophils (%) (Auto) 0 % (0-3) 1 % (0-3) Neutrophils # (Auto) 7.1 x10^3uL (1.8-7.7) 4.2 x10^3uL (1.8-7.7) Lymphocytes # (Auto) 1.4 x10^3/uL (1.0-4.8) 1.9 x10^3/uL (1.0-4.8) Monocytes # (Auto) 0.8 x10^3/uL (0.0-1.1) 0.7 x10^3/uL (0.0-1.1) Eosinophils # (Auto) 0.2 x10^3/uL (0.0-0.7) 0.3 x10^3/uL (0.0-0.7) Basophils # (Auto) 0.0 x10^3/uL (0.0-0.2) 0.1 x10^3/uL (0.0-0.2) Sodium Level 138 mmol/L (136-145) 136 mmol/L (136-145) Potassium Level 4.0 mmol/L (3.5-5.1) 4.3 mmol/L (3.5-5.1) Chloride Level 100 mmol/L (98-107) 101 mmol/L (98-107) Carbon Dioxide Level 28 mmol/L (21-32) 27 mmol/L (21-32) Anion Gap 10 (6-14) 8 (6-14) Blood Urea Nitrogen 6 mg/dL (7-20) 9 mg/dL (7-20) Creatinine 0.8 mg/dL (0.6-1.0) 0.8 mg/dL (0.6-1.0) Estimated GFR (Cockcroft-Gault) 75.6 75.6 Glucose Level 135 mg/dL (70-99) 138 mg/dL (70-99) Calcium Level 9.3 mg/dL (8.5-10.1) 8.8 mg/dL (8.5-10.1) 25-Hydroxy Vitamin D Total 41.6 ng/mL (30.0-100.0) Laboratory Tests Test 12/23/16 05:40 White Blood Count 7.2 x10^3/uL (4.0-11.0) Red Blood Count 4.29 x10^6/uL (3.50-5.40) Hemoglobin 12.5 g/dL (12.0-15.5) Hematocrit 37.1 % (36.0-47.0) Mean Corpuscular Volume 87 fL (79-100) Mean Corpuscular Hemoglobin 29 pg (25-35) Mean Corpuscular Hemoglobin Concent 34 g/dL (31-37) Red Cell Distribution Width 14.4 % (11.5-14.5) Platelet Count 240 x10^3/uL (140-400) Neutrophils (%) (Auto) 58 % (31-73) Lymphocytes (%) (Auto) 27 % (24-48) Monocytes (%) (Auto) 10 % (0-9) Eosinophils (%) (Auto) 4 % (0-3) Basophils (%) (Auto) 1 % (0-3) Neutrophils # (Auto) 4.2 x10^3uL (1.8-7.7) Lymphocytes # (Auto) 1.9 x10^3/uL (1.0-4.8) Monocytes # (Auto) 0.7 x10^3/uL (0.0-1.1) Eosinophils # (Auto) 0.3 x10^3/uL (0.0-0.7) Basophils # (Auto) 0.1 x10^3/uL (0.0-0.2) Sodium Level 136 mmol/L (136-145) Potassium Level 4.3 mmol/L (3.5-5.1) Chloride Level 101 mmol/L (98-107) Carbon Dioxide Level 27 mmol/L (21-32) Anion Gap 8 (6-14) Blood Urea Nitrogen 9 mg/dL (7-20) Creatinine 0.8 mg/dL (0.6-1.0) Estimated GFR (Cockcroft-Gault) 75.6 Glucose Level 138 mg/dL (70-99) Calcium Level 8.8 mg/dL (8.5-10.1) Medications Current Medications Fentanyl Citrate (Fentanyl 2ml Vial) 75 mcg 1X ONCE IV Last administered on 10:20; Start 12/19/16 at 10:15; Stop 12/19/16 at 10:29; Status DC Ondansetron HCl (Zofran) 4 mg 1X ONCE IV Last administered on 12/19/16 10:19 ; Start 12/19/16 at 10:15; Stop 12/19/16 at 10:29; Status DC Iohexol (Omnipaque 300 Mg/ml) 75 ml 1X ONCE IV Last administered on 12/19/16 10:52; Start 12/19/16 at 10:30; Stop 12/19/16 at 10:31; Status DC Morphine Sulfate 4 mg 1X ONCE IV Last administered on 12/19/16 10:45; Start 12/19/16 at 10:45; Stop 12/19/16 at 10:46; Status DC Iohexol (Omnipaque 300 Mg/ml) 75 ml STK-MED ONCE .ROUTE ; Start 12/19/16 at 10: 46; Stop 12/19/16 at 10:47; Status DC Morphine Sulfate 4 mg Q2HR PRN IV pain Last administered on 12/21/16 13:20; Start 12/19/16 at 11:30 Morphine Sulfate 2 mg PRN Q2HR PRN IV PAIN; Start 12/19/16 at 12:45; Stop 12/20 at 12:44; Status DC Calcium Acetate (Phoslo) 667 mg TIDWMEALS PO Last administered on 12/23/16 09: 20; Start 12/19/16 at 17:30 Pantoprazole Sodium (Protonix) 40 mg DAILYAC PO Last administered on 12/23/16 05:43; Start 12/20/16 at 07:30 Non-Formulary Medication 2 puff PRN Q4-6HRS IH ; Start 12/19/16 at 17:15; Status UNV Non-Formulary Medication 1 each DAILY INH ; Start 12/20/16 at 09:00; Status UNV Multivitamins (Thera M Plus) 1 tab DAILY PO ; Start 12/20/16 at 09:00; Stop at 09:00; Status DC Cyclobenzaprine HCl (Flexeril) 10 mg PRN Q8HRS PRN PO MUSCLE SPASMS Last administered on 12/23/16 05:43; Start 12/19/16 at 17:15 Albuterol Sulfate (Ventolin Neb Soln) 2.5 mg RTQID NEB Last administered on 06:51; Start 12/19/16 at 20:00 Albuterol Sulfate (Ventolin Neb Soln) 2.5 mg PRN Q6HRS PRN NEB SHORTNESS OF BREATH; Start 12/19/16 at 17:30 Budesonide (Pulmicort) 0.5 mg RTBID NEB Last administered on 12/23/16 06:51; Start 12/19/16 at 20:00 Multivitamins (Thera M Plus) 1 tab DAILY PO Last administered on 12/23/16 09: 20; Start 12/20/16 at 09:00 Acetaminophen/ Hydrocodone Bitart (Lortab 5/325) 2 tab PRN Q4HRS PRN PO PAIN Last administered on 12/21/16 04:25; Start 12/20/16 at 15:00; Stop 12/21/16 at 09:08; Status DC Acetaminophen/ Hydrocodone Bitart (Lortab 5/325) 1 tab PRN Q4HRS PRN PO PAIN; Start 12/20/16 at 15:00 Sennosides (Senna) 17.2 mg PRN DAILY PRN PO CONSTIPATION Last administered on 15:20; Start 12/20/16 at 15:00 Docusate Sodium (Colace) 100 mg DAILY PO Last administered on 12/21/16 08:53; Start 12/20/16 at 15:00; Stop 12/22/16 at 09:53; Status DC Oxycodone/ Acetaminophen (Percocet 5/325) 1 tab PRN Q4HRS PRN PO PAIN Last administered on 12/23/16 05:43; Start 12/20/16 at 15:30 Senna/Docusate Sodium (Senna Plus) 1 tab BID PO Last administered on 12/23/16 09:20; Start 12/21/16 at 10:00 Docusate Sodium (Colace) 100 mg BID PO Last administered on 12/23/16 09:20; Start 12/21/16 at 10:00 Magnesium Hydroxide (Milk Of Magnesia) 2,400 mg PRN Q12HR PRN PO CONSTIPATION; Start 12/21/16 at 09:15; Stop 12/22/16 at 09:53; Status DC Bisacodyl (Dulcolax Supp) 10 mg PRN DAILY PRN MT CONSTIPATION; Start 12/21/16 at 09:15 Bisacodyl (Dulcolax Tab) 10 mg DAILY PO Last administered on 12/23/16 09:20; Start 12/21/16 at 11:00 Acetaminophen (Tylenol) 650 mg PRN Q6HRS PRN PO FEVER Last administered on 12/22 08:37; Start 12/21/16 at 13:15 Ondansetron HCl (Zofran) 4 mg PRN Q6HRS PRN IV NAUSEA/VOMITING Last administered on 12/23/16 01:40; Start 12/21/16 at 13:15 Morphine Sulfate 2 mg PRN Q2HR PRN IV PAIN Last administered on 12/23/16 01:32 ; Start 12/21/16 at 13:15 Tramadol HCl (Ultram) 50 mg PRN Q6HRS PRN PO PAIN mild to MOD; Start 12/21/16 at 13:15 Hydralazine HCl (Apresoline) 10 mg PRN Q4HRS PRN IVP ELEVATED BP, SEE COMMENTS ; Start 12/21/16 at 13:15 Docusate Sodium (Colace) 100 mg PRN DAILY PRN PO CONSTIPATION; Start 12/21/16 at 13:15 Enoxaparin Sodium (Lovenox 40mg Syringe) 40 mg Q24H SQ Last administered on 15:32; Start 12/21/16 at 15:00 Magnesium Hydroxide (Milk Of Magnesia) 2,400 mg BID PO Last administered on 09:20; Start 12/22/16 at 10:30 Polyethylene Glycol (miraLAX PACKET) 17 gm DAILY PO Last administered on 09:20; Start 12/22/16 at 10:30 Active Scripts Active Cyclobenzaprine Hcl 10 Mg Tablet 10 Mg PO PRN Q8HRS PRN Senna-Time S Tablet (Sennosides/Docusate Sodium) 1 Each Tablet 1 Tab PO BID Oxycodone-Acetaminophen 5-325 (Oxycodone Hcl/Acetaminophen) 1 Each Tablet 1 Tab PO PRN Q4HRS PRN Colace (Docusate Sodium) 100 Mg Capsule 100 Mg PO BID Reported Breo Ellipta 100-25 Mcg INH (Fluticasone/Vilanterol) 1 Each Blst.w.dev 1 Each INH DAILY Protonix (Pantoprazole Sodium) 40 Mg Tablet.dr 1 Tab PO DAILY Proair Hfa Inhaler (Albuterol Sulfate) 8.5 Gm Hfa.aer.ad 2 Puff IH PRN Q4-6HRS Phoslo (Calcium Acetate) 667 Mg Capsule 667 Mg PO TIDWMEALS Daily Value (Multivitamin) 1 Each Tablet 1 Each PO DAILY Bupropion Hcl Sr (Bupropion Hcl) 150 Mg Tablet.er 40 Tab PO BID Vitals/I & O Vital Sign - Last 24 Hours 12/22/16 12/22/16 12/22/16 12/22/16 11:13 11:15 11:34 15:10 Temp 97.4 97.4 Pulse 90 Resp 18 B/P (MAP) 142/93 (109) Pulse Ox 97 O2 Delivery Room Air Room Air Room Air Room Air 12/22/16 12/22/16 12/22/16 12/22/16 15:15 18:50 19:00 20:00 Temp 98.1 98.1 98.1 98.1 Pulse 97 91 Resp 20 20 18 B/P (MAP) 121/82 (95) 146/96 (113) Pulse Ox 98 98 95 O2 Delivery Room Air Room Air Room Air Room Air 12/22/16 12/22/16 12/23/16 12/23/16 20:00 23:00 01:03 01:32 Temp 98.2 98.2 Pulse 105 Resp 18 16 16 B/P (MAP) 147/92 (110) Pulse Ox 96 97 97 97 O2 Delivery Room Air Room Air Room Air Room Air 12/23/16 12/23/16 12/23/16 12/23/16 02:02 03:00 05:43 06:43 Temp 97.9 97.9 Pulse 99 Resp 16 18 16 16 B/P (MAP) 146/82 (103) Pulse Ox 97 98 98 98 O2 Delivery Room Air Room Air Room Air Room Air 12/23/16 12/23/16 07:00 07:13 Temp 97.9 97.9 Pulse 80 Resp 18 B/P (MAP) 107/67 (80) Pulse Ox 100 98 O2 Delivery Room Air Room Air YESSI TURNER MD Dec 23, 2016 09:49
--- NOTE | 2016-12-23 10:31 | RAD ---
JASMYN, 12/23/2016: History: Constipation There is moderate amount of gas and a small amount of stool scattered throughout the colon. The gas extends down into the rectum. There is no evidence of organomegaly. Surgical clips in the right upper quadrant suggest a previous cholecystectomy. IMPRESSION: No acute abdominal abnormality is detected.
--- NOTE | 2016-12-23 10:43 | PDOC ---
SUBJECTIVE Subjective Stable back pain. Feels better since bracing initiated. No BM yet. ROS: denies focal weakness, paresthesias, radicular pain, bladder changes OBJECTIVE Vital Signs Vital Signs Date Time Temp Pulse Resp B/P (MAP) Pulse Ox O2 Delivery O2 Flow Rate FiO2 12/23/16 07:13 98 Room Air 12/23/16 07:00 97.9 80 18 107/67 (80) 100 Room Air 97.9 12/23/16 07:00 Room Air 12/23/16 06:43 16 98 Room Air 12/23/16 05:43 16 98 Room Air 12/23/16 03:00 97.9 99 18 146/82 (103) 98 Room Air 97.9 12/23/16 02:02 16 97 Room Air 12/23/16 01:32 16 97 Room Air 12/23/16 01:03 16 97 Room Air 12/22/16 23:00 98.2 105 18 147/92 (110) 97 Room Air 98.2 12/22/16 20:00 96 Room Air 12/22/16 20:00 Room Air 12/22/16 19:00 98.1 91 18 146/96 (113) 95 Room Air 98.1 12/22/16 18:50 20 98 Room Air 12/22/16 15:15 98.1 97 20 121/82 (95) 98 Room Air 98.1 12/22/16 15:10 Room Air 12/22/16 11:34 Room Air 12/22/16 11:15 97.4 90 18 142/93 (109) 97 Room Air 97.4 12/22/16 11:13 Room Air PHYSICAL EXAM Physical Exam AAOx4, NAD, sitting in chair with brace on, SWEET, sensation intact LT ASSESSMENT/PLAN Assessment/Plan 51 F with thoracic spinous fractures and lumbar compression fractures -clinically/neurologically stable -for lumbar fractures, continue to wear TLSO at all times when OOB, no strenuous activity, no lifting more than 10 lbs -okay to d/c to appropriate venue from NS standpoint when otherwise meets criteria/clear by all other services -appears that she may be d/c to rehab today -recommend upright lumbar plain films with brace on in two weeks with outpatient follow-up (Dr. Kaye/neurosurgery) [phone] -d/w patient and family, all questions answered, all in agreement Problems: COMMENT Lab Laboratory Tests Test 12/23/16 05:40 White Blood Count 7.2 x10^3/uL (4.0-11.0) Red Blood Count 4.29 x10^6/uL (3.50-5.40) Hemoglobin 12.5 g/dL (12.0-15.5) Hematocrit 37.1 % (36.0-47.0) Mean Corpuscular Volume 87 fL (79-100) Mean Corpuscular Hemoglobin 29 pg (25-35) Mean Corpuscular Hemoglobin Concent 34 g/dL (31-37) Red Cell Distribution Width 14.4 % (11.5-14.5) Platelet Count 240 x10^3/uL (140-400) Neutrophils (%) (Auto) 58 % (31-73) Lymphocytes (%) (Auto) 27 % (24-48) Monocytes (%) (Auto) 10 % (0-9) Eosinophils (%) (Auto) 4 % (0-3) Basophils (%) (Auto) 1 % (0-3) Neutrophils # (Auto) 4.2 x10^3uL (1.8-7.7) Lymphocytes # (Auto) 1.9 x10^3/uL (1.0-4.8) Monocytes # (Auto) 0.7 x10^3/uL (0.0-1.1) Eosinophils # (Auto) 0.3 x10^3/uL (0.0-0.7) Basophils # (Auto) 0.1 x10^3/uL (0.0-0.2) Sodium Level 136 mmol/L (136-145) Potassium Level 4.3 mmol/L (3.5-5.1) Chloride Level 101 mmol/L (98-107) Carbon Dioxide Level 27 mmol/L (21-32) Anion Gap 8 (6-14) Blood Urea Nitrogen 9 mg/dL (7-20) Creatinine 0.8 mg/dL (0.6-1.0) Estimated GFR (Cockcroft-Gault) 75.6 Glucose Level 138 mg/dL (70-99) Calcium Level 8.8 mg/dL (8.5-10.1) RADHA KAYE MD Dec 23, 2016 10:43
[2016-12-23 11:00] VITALS: BP 133/84
--- NOTE | 2016-12-23 12:55 | PDOC3 ---
Discharge Summary [facility] Date of Admission: Dec 21, 2016 Discharge Date: Dec 23, 2016 Admitting Diagnosis Traumatic fall with L2, L3 compressive fx, and rib fx intractable lumbago with fall Depression Probable ETOH abuse h/o Right breast infection Cholecystectomy Tonsillectomy constipation h/o COPD CAMMY, vasomotor Problems: Final Diagnosis CONSULTS dr. YUE KAYE Brief Hospital Course Ms. Torres is a 51 old F, fell from a donkey, with lower back pain, was found Traumatic fall with L2, L3 compressive fx, and rib fx. neuro sx consulted, recommend IR, IR DIDNOT recommend sx. dr. taveras CONSULTED too. pt improved some with back brace, and on percocet. one time fever on méndez, afebrile when méndez removed. no dysuria. cont having constipation, KUB showed no obstruction, but colon full of gas. will cont give stool softner, suppository. dc to rehab. dc time 35min. General: Alert, Oriented X3, Cooperative, No acute distress Heart: Regular rate Lungs: Clear Abdomen: Soft, Other (mild tenderness to lower abdomen ) Extremities: No clubbing, No cyanosis, No edema Skin: No rashes, No breakdown Patient History: Heart murmur 32 MOTHER Problems: Disposition REHAB CONDITION AT DISCHARGE: Improved Diet regular Scheduled Albuterol Sulfate (Proair Hfa Inhaler), 2 PUFF IH PRN Q4-6HRS, (Reported) Bupropion Hcl (Bupropion Hcl Sr), 40 TAB PO BID, (Reported) Calcium Acetate (Phoslo), 667 MG PO TIDWMEALS, (Reported) Docusate Sodium (Colace), 100 MG PO BID Fluticasone/Vilanterol (Breo Ellipta 100-25 Mcg INH), 1 EACH INH DAILY, ( Reported) Multivitamin (Daily Value), 1 EACH PO DAILY, (Reported) Pantoprazole Sodium (Protonix), 1 TAB PO DAILY, (Reported) Sennosides/Docusate Sodium (Senna-Time S Tablet), 1 TAB PO BID Scheduled PRN Cyclobenzaprine Hcl (Cyclobenzaprine Hcl), 10 MG PO PRN Q8HRS PRN for MUSCLE SPASMS Oxycodone Hcl/Acetaminophen (Oxycodone-Acetaminophen 5-325), 1 TAB PO PRN Q4HRS PRN for PAIN Discontinued Medications Naltrexone HCl/Bupropion HCl (Contrave ER 8-90 mg Tablet), 1 EACH PO, (Reported) Omeprazole (Omeprazole), 40 TAB PO BID, (Reported) Sucralfate (Carafate), 1 GM PO QID, (Reported) Follow Up [facility] IN 2 WS EDIE CALLOWAY MD Dec 23, 2016 12:55
[2016-12-23] MEDS ORDERED: ENOXAPARIN 40 MG/0.4 ML SYRINGE. SQ SCH (13:00)
--- NOTE | 2016-12-24 09:05 | RAD ---
CT lumbar spine reconstructions 12/19/2016 Indication: Trauma Comparison: None available Technique: CT of the lumbar spine was acquired utilizing reconstructions from a CT abdomen/pelvis with contrast. Coronal and sagittal reformats are available. Findings: Alignment of the lumbar spine is normal. Disc height loss is noted at L5-S1. There is a fracture involving the anterior superior L2 vertebral body with approximately 10% loss of height. There is no retropulsion at this level. There is focal discontinuity of the superior endplate of L3, suggestive of a fracture. No fractures involving the posterior elements. There is no significant spinal canal stenosis. There is moderate right neural foraminal stenosis at L5-S1. Impression: 1. There is a anterior superior endplate fracture involving L2 with approximately 10% loss of height. There is no involvement of the posterior elements. 2. There is a superior endplate fracture involving L3 without significant loss of height. There is no significant associated paraspinal hematoma. Critical results were discussed with ER physician at 1:30 PM on 12/19/[address] Neal. PQRS Compliance Statement: One or more of the following individualized dose reduction techniques were utilized for this examination: 1. Automated exposure control 2. Adjustment of the mA and/or kV according to patient size 3. Use of iterative reconstruction technique DICTATED and SIGNED BY: OMEGA NEAL MD DATE: 12/19/16 1327 MTDD
== END 2016-12-23 14:10 | DRG 551 ==
LOC: ER 10:06 → 4 NORTH 12:30 → OBSVTOIN 12-21 09:17
PROVIDERS: ADMIT Internal Medicine; ATTEND Internal Medicine
DX: S32.029A Unspecified fracture of second lumbar vertebra, initial encounter for closed fracture (principal); N17.0 Acute kidney failure with tubular necrosis; Z68.41 Body mass index [BMI] 40.0-44.9, adult; S06.0X9A Concussion with loss of consciousness of unspecified duration, initial encounter; S22.009A Unspecified fracture of unspecified thoracic vertebra, initial encounter for closed fracture; S22.31XA Fracture of one rib, right side, initial encounter for closed fracture; N39.0 Urinary tract infection, site not specified; S32.039A Unspecified fracture of third lumbar vertebra, initial encounter for closed fracture; F10.10 Alcohol abuse, uncomplicated; F32.9 Major depressive disorder, single episode, unspecified; J44.9 Chronic obstructive pulmonary disease, unspecified; K21.9 Gastro-esophageal reflux disease without esophagitis; K59.00 Constipation, unspecified; N61.0 Mastitis without abscess; S33.5XXA Sprain of ligaments of lumbar spine, initial encounter; V80.010A Animal-rider injured by fall from or being thrown from horse in noncollision accident, initial encounter; Y93.52 Activity, horseback riding; Z82.49 Family history of ischemic heart disease and other diseases of the circulatory system; Z87.891 Personal history of nicotine dependence; E66.9 Obesity, unspecified; Z90.49 Acquired absence of other specified parts of digestive tract; Z88.1 Allergy status to other antibiotic agents
CPT/HCPCS: 36415; 70450; 71010; 71260; 72125; 72131; 74000; 74177; 80048; 81001; 82306; 85025; 94250; 94640; 94760; 96374; 96375; G0378; G0379; J1650; J2270; J2405; J3010; J7613; J7626; Q9967; 97116; 97530; 97535; 99285-25

== ENCOUNTER → 2017-01-05 | Outpatient (CLI) | payer BC ==
[2016-12-23 11:00] VITALS: BP 133/84
[~2017-01-05] MED LIST changes: +CYCL10TA2 PO; +DOCU-109 PO; +FLUT1AER2 INH; +OXYC1TAB7 PO; +PANT40TA3 PO; +SENN-22 PO
--- NOTE | 2017-01-05 17:09 | RAD ---
Lumbar spine, 3 views, 01/05/2017: History: Low back pain, injury Comparison is made to CT images from 12/19/2016. There is mild anterior wedging of the L2 vertebral body which is unchanged. Slight deformity of the superior endplate of the L3 vertebral body is also unchanged. No new fracture or dislocation is identified. There are mild scattered marginal spurs. There is moderate disc space narrowing and endplate sclerosis at L5-S1. There are mild degenerative changes involving the facet joints in the lower lumbar spine. There is a mild thoracolumbar scoliosis. IMPRESSION: 1. Unchanged mild lumbar vertebral fractures as described above. 2. Moderate degenerative change.
== END | disposition home or self-care (01) ==
LOC: RAD 11:59
PROVIDERS: ATTEND Neurological Surgery
DX: M48.56XA Collapsed vertebra, not elsewhere classified, lumbar region, initial encounter for fracture (principal); M47.896 Other spondylosis, lumbar region; G89.18 Other acute postprocedural pain
CPT/HCPCS: 72100

== ENCOUNTER → 2017-02-15 | Outpatient (CLI) | payer BC ==
[~2017-02-15] MED LIST changes: +LISI-338 PO
--- NOTE | 2017-02-15 11:35 | RAD ---
Lumbar spine, 3 views, 02/15/2017: History: Follow-up compression fracture Comparison is made to a study from 01/05/2017. The fracture involving the superior endplate of L2 appears unchanged. The other lumbar vertebral heights are well-maintained. There are moderate scattered marginal spurs. There is moderate disc space narrowing at L5-S1. Mild facet joint arthropathy is evident in the lower lumbar spine. There is a mild thoracolumbar scoliosis. No new fracture is evident. Aortic calcific plaquing is noted. IMPRESSION: 1. Stable L2 vertebral compression fracture. 2. Moderate degenerative change. 3. No new abnormality is detected.
== END | disposition home or self-care (01) ==
LOC: RAD 10:11
PROVIDERS: ATTEND Neurological Surgery
DX: M48.56XA Collapsed vertebra, not elsewhere classified, lumbar region, initial encounter for fracture (principal)
CPT/HCPCS: 72100

== ENCOUNTER 2017-03-25 12:03 | Emergency (ER) | payer BC ==
[~2017-03-25] VITALS: Ht 154.9 cm; Wt 89.4 kg
[~2017-03-25 12:03] MED LIST changes: -LISI-338 PO
--- NOTE | 2017-03-25 12:43 | PHYS DOC ---
Past Medical History Past Medical History: Depression, Other Additional Past Medical Histor: REOCCURRING RIGHT BREAST INFECTION, PLANTAR FASCHITIS Past Surgical History: Cholecystectomy, Tonsillectomy, Other Additional Past Surgical Histo: RT BREAST BX Alcohol Use: Occasionally Drug Use: None Adult General Chief Complaint Chief Complaint: HYPERTENSION HPI HPI Patient is a 52 year old female presents to the emergency department with report of high blood pressure. Patient states that she has had multiple providers over the course of 6 month toe her that her blood pressures elevated. She states she had gastric bypass surgery 2 days ago at which time her blood pressure was elevated. She states in follow-up today her blood pressures elevated and advised to come to the emergency department. Patient reports that she feels no different, outside of her surgical procedure, then she normally does. She states she has no headache, no chest pain. She has no blurred vision, double vision, shortness of breath. Patient reports that "if I would not have gone from a follow-up appointment I wouldn't know my blood pressure was elevated ". Review of Systems Review of Systems Constitutional: Denies fever or chills [] Eyes: Denies change in visual acuity, redness, or eye pain [] HENT: Denies nasal congestion or sore throat [] Respiratory: Denies cough or shortness of breath [] Cardiovascular: No additional information not addressed in HPI [] GI: Denies nausea, vomiting, bloody stools or diarrhea; complaining of mild abdominal discomfort which she relates to her surgical procedure. [] : Denies dysuria or hematuria [] Musculoskeletal: Denies back pain or joint pain [] Integument: Denies rash or skin lesions [] Neurologic: Denies headache, focal weakness or sensory changes [] Endocrine: Denies polyuria or polydipsia [] All other systems were reviewed and found to be within normal limits, except as documented in this note. Current Medications Current Medications Current Medications Medications (Trade) Dose Ordered Sig/Mayra Start Time Stop Time Status Last Admin Dose Admin Clonidine HCl (Catapres) 0.1 mg 1X ONCE 03/25/17 14:00 03/25/17 14:01 DC Hydralazine HCl (Apresoline Inj) 10 mg 1X ONCE 03/25/17 12:45 03/25/17 12:46 DC 03/25/17 13:21 10 MG Sodium Chloride 1,000 ml @ 1,000 mls/hr 1X ONCE 03/25/17 12:45 03/25/17 13:44 DC 03/25/17 13:20 1,000 MLS/HR Allergies Allergies Allergies Coded Allergies Type Severity Reaction Last Updated Verified vancomycin Adverse Reaction Intermediate CAUSES CONFUSION PER PATIENT Yes Physical Exam Physical Exam Constitutional: Well developed, well nourished, no acute distress, non-toxic appearance. [] HENT: Normocephalic, atraumatic, bilateral external ears normal, mucous membranes dry. Eyes: PERRLA, EOMI, conjunctiva normal, no discharge. Scopic exam benign[] Neck: Normal range of motion, no tenderness, supple, no stridor. [] Cardiovascular:Heart rate regular rhythm, no murmur [] Lungs & Thorax: Bilateral breath sounds clear to auscultation [] Abdomen: Abdomen slightly distended, she does have a SHAINA drain, dressing over the incision is dry and intact. Sounds normoactive Skin: Warm, dry, no erythema, no rash. [] Back: No tenderness, no CVA tenderness. [] Extremities: No tenderness, no cyanosis, no clubbing, ROM intact, no edema. [] Neurologic: Alert and oriented X 3, normal motor function, normal sensory function, no focal deficits noted. [] Psychologic: Affect normal, judgement normal, mood normal. [] Current Patient Data Vital Signs Vital Signs Date Time Temp Pulse Resp B/P (MAP) Pulse Ox O2 Delivery O2 Flow Rate FiO2 03/25/17 13:21 103 180/108 03/25/17 12:31 98.0 20 97 Room Air 98.0 Lab Values Laboratory Tests Test 03/25/17 12:50 White Blood Count 12.4 x10^3/uL (4.0-11.0) H Red Blood Count 5.29 x10^6/uL (3.50-5.40) Hemoglobin 15.1 g/dL (12.0-15.5) Hematocrit 45.1 % (36.0-47.0) Mean Corpuscular Volume 85 fL (79-100) Mean Corpuscular Hemoglobin 29 pg (25-35) Mean Corpuscular Hemoglobin Concent 34 g/dL (31-37) Red Cell Distribution Width 15.4 % (11.5-14.5) H Platelet Count 295 x10^3/uL (140-400) Neutrophils (%) (Auto) 73 % (31-73) Lymphocytes (%) (Auto) 15 % (24-48) L Monocytes (%) (Auto) 8 % (0-9) Eosinophils (%) (Auto) 3 % (0-3) Basophils (%) (Auto) 1 % (0-3) Neutrophils # (Auto) 9.1 x10^3uL (1.8-7.7) H Lymphocytes # (Auto) 1.9 x10^3/uL (1.0-4.8) Monocytes # (Auto) 1.0 x10^3/uL (0.0-1.1) Eosinophils # (Auto) 0.4 x10^3/uL (0.0-0.7) Basophils # (Auto) 0.1 x10^3/uL (0.0-0.2) Sodium Level 137 mmol/L (136-145) Potassium Level 3.5 mmol/L (3.5-5.1) Chloride Level 97 mmol/L (98-107) L Carbon Dioxide Level 24 mmol/L (21-32) Anion Gap 16 (6-14) H Blood Urea Nitrogen 9 mg/dL (7-20) Creatinine 0.9 mg/dL (0.6-1.0) Estimated GFR (Cockcroft-Gault) 65.8 BUN/Creatinine Ratio 10 (6-20) Glucose Level 135 mg/dL (70-99) H Calcium Level 9.3 mg/dL (8.5-10.1) Total Bilirubin 0.5 mg/dL (0.2-1.0) Aspartate Amino Transferase (AST) 53 U/L (15-37) H Alanine Aminotransferase (ALT) 57 U/L (14-59) Alkaline Phosphatase 80 U/L (46-116) Total Protein 9.3 g/dL (6.4-8.2) H Albumin 4.2 g/dL (3.4-5.0) Albumin/Globulin Ratio 0.8 (1.0-1.7) L Laboratory Tests 03/25/17 12:50 Laboratory Tests 03/25/17 12:50 EKG EKG [] Radiology/Procedures Radiology/Procedures [] Course & Med Decision Making Course & Med Decision Making Pertinent Labs and Imaging studies reviewed. (See chart for details) []1350: Repeat blood pressure 160/109 after hydralazine 10 mg IV. Clonidine 0.1 mg by mouth. Patient was given 1 L of normal saline for mild dehydration secondary to preop and surgical procedure for gastric bypass. 1425: BP 165/90 plan to discharge patient to home, will place on lisinopril 5 mg by mouth. I chosen a lower dose because patient is on a limited fluid intake without food secondary to her gastric bypass surgery 2 days ago and she is already mildly dehydrated. Patient has a follow-up appointment on March 31 with her primary care. Dragon Disclaimer Dragon Disclaimer This electronic medical record was generated, in whole or in part, using a voice recognition dictation system. Departure Departure Impression: Primary Impression: Hypertension Disposition: HOME, SELF-CARE Condition: STABLE Referrals: SHEILA SU MD (PCP) Patient Instructions: Hypertension Additional Instructions: Return to the emergency Department for new symptoms or concerns or worsening of current condition. Scripts Lisinopril (LISINOPRIL) 5 Mg Tablet 1 TAB PO DAILY, #30 TAB 5 Refills Prov: GLEN PIERRE APRN 03/25/17 Problem Qualifiers Primary Impression: Hypertension Hypertension type: unspecified Qualified Codes: I10 - Essential (primary) hypertension GLEN PIERRE APRN Mar 25, 2017 12:43
[2017-03-25] MEDS ORDERED: IV NORMAL SALINE 1000ML BAG 1,000 ML IV ONE (12:45)
[2017-03-25] MEDS ORDERED: hydrALAZINE 20 MG/ML VIAL. IVP ONE (12:45)
[2017-03-25 13:03] LABS: BASO # 0.1 x10^3/uL (0.0-0.2); BASO % 1 % (0-3); EOS % 3 % (0-3); HEMATOCRIT 45.1 % (36.0-47.0); HEMOGLOBIN 15.1 g/dL (12.0-15.5); LYMPH # 1.9 x10^3/uL (1.0-4.8); LYMPH % 15 % (24-48); MEAN CORPUSCULAR HEMOGLOBIN 29 pg (25-35); MEAN CORPUSCULAR HGB CONC 34 g/dL (31-37); MEAN CORPUSCULAR VOLUME 85 fL (79-100); MONO % 8 % (0-9); NEUT % 73 % (31-73); PLATELET COUNT 295 x10^3/uL (140-400); RED BLOOD COUNT 5.29 x10^6/uL (3.50-5.40); RED CELL DISTRIBUTION WIDTH 15.4 % (11.5-14.5); WHITE BLOOD COUNT 12.4 x10^3/uL (4.0-11.0)
[2017-03-25 13:18] LABS: CALCIUM 9.3 mg/dL (8.5-10.1); CREATININE 0.9 mg/dL (0.6-1.0); GFR 65.8; POTASSIUM 3.5 mmol/L (3.5-5.1)
[2017-03-25 13:24] LABS: ALBUMIN 4.2 g/dL (3.4-5.0); ALBUMIN/GLOBULIN RATIO 0.8 (1.0-1.7); TOTAL BILIRUBIN 0.5 mg/dL (0.2-1.0); TOTAL PROTEIN 9.3 g/dL (6.4-8.2)
[2017-03-25 14:00] VITALS: BP 167/94
[2017-03-25] MEDS ORDERED: cloNIDine HCL 0.1 MG TABLET PO ONE (14:00)
[2017-03-25] MEDS ORDERED: LISI-338 PO (14:36)
== END 2017-03-25 15:16 | disposition home or self-care (01) ==
LOC: ER 12:03
DX: I10 Essential (primary) hypertension (principal); F32.9 Major depressive disorder, single episode, unspecified; Z98.84 Bariatric surgery status; Z90.49 Acquired absence of other specified parts of digestive tract; Z88.1 Allergy status to other antibiotic agents
CPT/HCPCS: 36415; 80053; 85025; 96361; 96374; 99284; J0360; J7030

== ENCOUNTER → 2017-05-20 | Outpatient (CLI) | payer BC | END | disposition home or self-care (01) | LOC: RAD 09:28 | DX: M48.56XA Collapsed vertebra, not elsewhere classified, lumbar region, initial encounter for fracture (principal); M47.896 Other spondylosis, lumbar region; Z90.49 Acquired absence of other specified parts of digestive tract | CPT/HCPCS: 72100 ==

== ENCOUNTER → 2017-07-16 | Outpatient (CLI) | payer BC, OTHER | END | disposition home or self-care (01) | LOC: KCIC MAMMO 09:18 | DX: Z12.31 Encounter for screening mammogram for malignant neoplasm of breast (principal) | CPT/HCPCS: 77067 ==

== ENCOUNTER → 2018-01-27 | Outpatient (CLI) | payer BC ==
[~2018-01-27] MED LIST changes: +LISI-338 PO
--- NOTE | 2018-01-27 17:13 | RAD ---
Indication:LEFT SIDED PELVIC PAIN TECHNIQUE: Grayscale, color Doppler and spectral waveform images of the pelvis obtained. COMPARISON:None FINDINGS: Visualized bladder within normal limits. Status post hysterectomy. Right ovary is surgically absent per history. Left ovary is nonvisualized likely obscured by bowel gas. No free pelvic fluid. IMPRESSION: Left ovary not visualized likely obscured by bowel gas. Left ovarian pathology not ruled out. Electronically signed by: Jason Bonilla DO (01/27/2018 5:10 PM) [facility]
== END | disposition home or self-care (01) ==
LOC: US 15:31
PROVIDERS: ATTEND Obstetrics & Gynecology
DX: R10.2 Pelvic and perineal pain (principal); Z90.710 Acquired absence of both cervix and uterus
CPT/HCPCS: 76830; 76856

== ENCOUNTER → 2018-02-09 | Outpatient (CLI) | payer BC ==
[~2018-02-09] MED LIST changes: +IOHEXOL 240 MG/ML 50ML VIAL. PO ONE; +IOHEXOL 300 MG/ML 100ML VIAL. IV ONE
--- NOTE | 2018-02-09 15:08 | KCIC ---
CT ABD PELV W/ORAL IV CONTRAST dated 02/09/2018 1:00 PM Indication: Left lower quadrant pain pelvic pain.. Comparison: 12/19/2016 Technique: Contiguous axial imaging of the abdomen and pelvis performed after the intravenous administration of 89 cc Omnipaque 300. One or more of the following individualized dose reduction techniques were utilized for this examination: 1. Automated exposure control 2. Adjustment of the mA and/or kV according to patient size 3. Use of iterative reconstruction technique Findings: Limited images of lung bases are clear. Heart size within normal limits. No pleural or pericardial effusion. Liver is of diffuse low densities, suggesting fatty infiltration. No apparent mass. Biliary tree normal in caliber. Gallbladder surgically absent. Spleen is normal in size. Pancreas, adrenal glands and kidneys are unremarkable. Tiny low-density focus at the lower pole right kidney, likely cyst. No hydronephrosis. Partially opacified GI tract normal in caliber and contour. No focal bowel wall thickening. No inflammatory stranding in the mesentery. The appendix is normal in caliber. There are scattered diverticula throughout the distal colon with possible mild wall thickening of the sigmoid. No paracolonic inflammatory stranding. The appendix is normal in caliber. No ascites or lymphadenopathy. Abdominal aorta normal in caliber. Images of pelvis show mildly distended urinary bladder. Uterus is surgically absent. No free fluid or pelvic lymphadenopathy. Bone windows show no acute findings. Mild wedge compression deformity of L2, unchanged from prior study. IMPRESSION: 1. Diverticulosis with possible mild wall thickening of the sigmoid. Early diverticulitis is not excluded. Correlate clinically. 2. Otherwise no acute findings. Normal appendix. 3. Remote wedge compression fracture at L2. Electronically signed by: Diomedes Moore MD (02/09/2018 3:05 PM) [id number]
== END | disposition home or self-care (01) ==
LOC: KCIC CT 12:04
PROVIDERS: ATTEND Obstetrics & Gynecology
DX: K57.30 Diverticulosis of large intestine without perforation or abscess without bleeding (principal); M48.56XD Collapsed vertebra, not elsewhere classified, lumbar region, subsequent encounter for fracture with routine healing; N32.89 Other specified disorders of bladder; I10 Essential (primary) hypertension; Z87.891 Personal history of nicotine dependence
CPT/HCPCS: 74177; Q9966; Q9967

== ENCOUNTER → 2018-07-29 | Outpatient (CLI) | payer BC ==
[~2018-07-29] MED LIST changes: +ALBU2.5V8 IH; -BIOT300T PO; +BIOT300T4 PO; -IOHEXOL 240 MG/ML 50ML VIAL. PO ONE; -IOHEXOL 300 MG/ML 100ML VIAL. IV ONE; -PROAIR HFA8.5 GM IH
--- NOTE | 2018-07-29 11:35 | KCIC ---
Bilateral digital screening mammograms: Reason for examination: Routine screening. Comparison is made to previous studies dated 07/16/2017 and 07/03/2016. Interpretation was made with the benefit of CAD. The skin and nipples show no abnormalities. No abnormal axillary lymph nodes are seen. The breast parenchyma shows scattered fibroglandular density. (Breast density: Category B.) There are no dominant masses, suspicious calcifications or architectural distortions. Impression: No evidence of malignancy. Recommend routine screening. BI-RADS Category 1: Negative. "Our facility is accredited by the [employer] Mammography Program." This patient's information has been entered into a reminder system for the patient to be notified with the results of her examination and a target date for the next mammogram. Electronically signed by: Marlene Eduardo MD (07/29/2018 11:32 AM) [id number]
== END | disposition home or self-care (01) ==
LOC: KCIC MAMMO 08:34
PROVIDERS: ATTEND Obstetrics & Gynecology
DX: Z12.31 Encounter for screening mammogram for malignant neoplasm of breast (principal)
CPT/HCPCS: 77067

== ENCOUNTER → 2021-01-14 | Outpatient (CLI) | payer BC, OTHER ==
[~2021-01-14] MED LIST changes: -LISI-338 PO; +LISI-517 PO; -NITR0.4T SL; +NITR0.4T24 SL; -PANT40TA3 PO; +PANT40TA77 PO
--- NOTE | 2021-01-14 14:51 | KCIC ---
EXAM: DUAL ENERGY X-RAY ABSORPTIOMETRY (DEXA). HISTORY: Postmenopausal screening. FINDINGS: The lowest measured T-score is -0.2 in the left total femur and lumbar spine, based on a tong ne mineral density of 0.913/1.029 g/cm^2, respectively. Refer to the worksheets for full detail. No comparison examinations are available. IMPRESSION: Normal. Bone mineral density yields a T-score of -1.0 or greater. Fracture risk is low. FRAX was not calculated. METHODOLOGY: Dual energy x-ray absorptiometry was performed to measure bone mineral density. The foll owing analysis is based on the 2019 Official Positions of the International Society for Clinical Dens itometry: Measurements of the hips and the average of L1-L4 are preferred. When the spine and/or hip cannot be feasibly measured or interpreted, or in the setting of hyperparathyroidism, distal radial bone minera l density may be measured. The lumbar spine T-score is based on the average bone mineral density of L1-L4. In the setting of art ifact or anatomic abnormality, some lumbar levels may be excluded, and the remaining levels used for calculation. A single lumbar level is not used for diagnosis, and if only a single level is available for assessment, another anatomic site will be used to assign a diagnosis. The hip T-score is based on the bone mineral density measurement of the femoral neck or total proxima l femur of either side, whichever is lowest. Bilateral mean values are not used for diagnosis. The forearm T-score is derived from 33% of the distal radius of the nondominant forearm. For postmenopausal and perimenopausal women, and men age 50 or older, of all ethnic groups, T-scores are calculated through comparison of the current measurement with the NHANES III database standard fo r females aged 20-29 years. The lowest T-score of the evaluated anatomic sites is used to a ssign a diagnosis based on the World Health Organization densitometric classification. In premenopausal females and males younger than age 50, a Z-score is calculated based on population s pecific reference data for patient sex and self-reported ethnicity. Electronically signed by: Vicki Chun MD (01/14/2021 2:48 PM) [id number]
--- NOTE | 2021-01-14 15:01 | KCIC ---
Bilateral digital screening mammograms: Reason for examination: Routine screening. Comparison is made to previous studies dated back to 09/26/2014. Interpretation is made with the benefit of CAD. The skin and nipples show no abnormalities. No abnormal lymph nodes are seen. The breast parenchyma i s predominantly fatty. (Breast density: Category A.) There continues to be a small parenchymal densit y in the 9:00 position of the left breast which is stable. There are no new dominant masses, suspicio us calcifications or architectural distortions. Impression: No evidence of malignancy. Recommend routine screening. BI-RADS Category 2: Benign. "Our facility is accredited by the [employer] Mammography Program." This patient's information has been entered into a reminder system for the patient to be notified wit h the results of her examination and a target date for the next mammogram. Electronically signed by: Marlene Eduardo MD (01/14/2021 2:58 PM) [id number]
== END ==
LOC: KCIC MAMMO 13:55
PROVIDERS: ATTEND Nurse Practitioner Family
DX: Z12.31 Encounter for screening mammogram for malignant neoplasm of breast (principal); N95.9 Unspecified menopausal and perimenopausal disorder
CPT/HCPCS: 77067; 77080

== ENCOUNTER → 2021-08-25 | Outpatient (CLI) | payer BC ==
[~2021-08-25] MED LIST changes: +ALPR0.5T6 PO; +CYCL10TA19 PO; -CYCL10TA2 PO; +ESCITALOPRAM OX10 MG PO; -LISI-517 PO; +LISI5TAB15 PO; -OMEP20TA8 PO; +OMEP20TA91 PO; +VITA0.4T4 PO; +[UNRECOGNIZED DRUG - CODE] PO
--- NOTE | 2021-08-25 14:45 | PDOC1 ---
INITIAL PAIN CONSULT DATE OF SERVICE: DOS: DATE: 08/25/21 TIME: 14:35 CHIEF COMPLAINT: Chief Complaint: Neck and left upper extremity pain HISTORY OF PRESENT ILLNESS: 56-year-old female presents with history of pain base the neck and left upper extremity for "many years" after she was thrown off a horse in 2017 has significant pain in the back as well as in her left shoulder and arm and got better over period of time with some therapy but the pain is returning and is much more noticeable now over the past 6 months or so without any specific recent injury patient reports the pain is radiating into the posterior deltoid posterior tricep also the bicep into the forearm into the hand involving the thumb and the first 2 fingers with some numbness and tingling patient reports no overt motor loss but significant weakness especially when she is holding her grandchild and her left arm she feels unsteady and this is worried her as well. Patient reports tingling with numbness in the hand and arm on the left side radiating from the shoulder into the arm as well as the base the neck and behind the ear on the left side patient reports intermittent but aching patient reports can be stabbing and throbbing as well as shooting in the left upper extremity but no pain on the right side. Patient reports that generally does not awaken her from sleep at night she can usually get positioned to where it is not painful and that she can sleep through the night and affect her bowel bladder control does not affect her ability to walk she is still doing exercises, and tried chiropractic treatment which actually made the pain worse. 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 Patient did have plain films of the cervical spine showing facet arthropathy and bilateral mild C4-5 and C5-6 neuroforaminal stenosis PAST MEDICAL HISTORY: PMH: Hypertension, obesity, dizziness PREVIOUS SURGERIES: Past Surgical Hx: Hysterectomy, hand repair, gastric sleeve CURRENT MEDICATIONS: Current Meds: Active Scripts Medications Dose Route/Sig Max Daily Dose Days Date Category Tylenol Pm Exstr 500-25Mg Cplt (Acetaminophen/Diphenhydramine) 1 Each Tablet 1 Each PO HS 08/25/21 Reported Alprazolam 0.5 Mg Tablet 1 Tab PO TID 08/25/21 Reported Escitalopram Oxalate 10 Mg Tablet 1 Tab PO DAILY 08/25/21 Reported B-Complex Tablet (Vitamin B Complex/Folic Acid) 0.4 Mg Tablet 1 Tab PO DAILY 30 08/25/21 Reported Lisinopril 5 Mg Tablet 1 Tab PO DAILY 03/25/17 Rx Daily Value (Multivitamin) 1 Each Tablet 1 Each PO DAILY 11/26/14 Reported Bupropion Hcl Sr (Bupropion Hcl) 150 Mg Tablet.er 40 Tab PO BID 11/26/14 Reported ALLERGIES; Allergies: Coded Allergies: vancomycin (Verified Adverse Reaction, Intermediate, CAUSES CONFUSION PER PATIENT, 04/01/15) FAMILY HISTORY: Family Hx: Heart disease, strokes SOCIAL HISTORY: Social Hx: Patient does not drink alcohol does not smoke, does not use illegeal, or illegal substances, patient is lives locally in [facility] REVIEW OF SYSTEMS: ROS: Positive for those items mentioned in history of present illness, all systems are reviewed, otherwise negative ,and are complete full and well-documented on patient's chart. PHYSICAL EXAM: VS: Blood pressure is 164/108 pulse 87 respirations 18 temperature 98.2 F height is 4 feet 11 inches weight 127 pounds PE: PHYSICAL EXAMINATION: GENERAL: The patient is awake, alert, oriented, appropriate, very pleasant in demeanor HEENT: Shows normocephalic, atraumatic. Extraocular movements are intact and symmetrical. Oral cavity: Mucous membranes moist and pink. Dentition is intact. NECK: Shows anterior throat supple without palpable lymphadenopathy noted. Swallow reflex symmetrical. CHEST: Shows normal on inspection. Breath sounds are clear bilaterally, no rales rhonchi or wheezes auscultated. HEART: Shows S1, S2 clear. No murmurs auscultated. ABDOMEN: Soft, nontender, nondistended. No palpable organomegaly is noted. BACK: Shows spine grossly in the midline. Normal-appearing cervical lordotic curvature. Cervical paraspinous muscles show symmetrical with inspection, palpation some moderate tenderness diffusely in the left greater than right middle and inferior aspect of the cervical paraspinous musculature as well as into the superior medial trapezius but without specific trigger points without specific radiation. Patient does show good rotation motion cervical spine with some moderate tenderness with left lateral rotation past 45 degrees as well as extension but not to the right or with forward flexion. There is slightly increased thoracic kyphosis, some minor flattening of the lumbar lordotic curvature. EXTREMITIES: Upper extremities show deep tendon reflexes 2 in the biceps and triceps tendons. 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 Peripheral pulses are 2+ radial. No peripheral edema is noted bilaterally. Upper extremities are warm and dry to touch, equal in color and appearance. SKIN: Shows warm and dry, good turgor. No edema. No sores, rashes or bruising throughout. IMPRESSION: Impression: 56-year-old female with long history of pain base of neck and left upper extremity worse over the past 6 months and radicular fashion. Plain film cervical spine as noted Hypertension Plan: Options were discussed the patient including conservative medical managements physical therapies interventional techniques. Patient like to pursue the most conservative course we will start with a Medrol Dosepak patient given instructions well side effects beware with the medication. Once completed patient will gauge her improvement and have her follow-up at that time. VALENTINA GONZALEZ MD August 25, 2021 14:45
== END | disposition home or self-care (01) ==
LOC: PNCL 13:09
PROVIDERS: ATTEND Anesthesiology
DX: M54.2 Cervicalgia (principal); M79.602 Pain in left arm; I10 Essential (primary) hypertension; E66.9 Obesity, unspecified; J44.9 Chronic obstructive pulmonary disease, unspecified; J45.909 Unspecified asthma, uncomplicated; G47.30 Sleep apnea, unspecified; K21.9 Gastro-esophageal reflux disease without esophagitis; F41.9 Anxiety disorder, unspecified; F32.9 Major depressive disorder, single episode, unspecified; Z90.49 Acquired absence of other specified parts of digestive tract; Z90.710 Acquired absence of both cervix and uterus; Z98.890 Other specified postprocedural states; Z79.899 Other long term (current) drug therapy
CPT/HCPCS: 99214; G0463